=== PATIENT | female | born 1965 | race Caucasian/White ===

== ENCOUNTER 2022-12-04 07:36 | Day surgery (SDC) | payer OTHER ==
[2022-12-04] VITALS (9 sets, daily range): BP systolic 90–110; BP diastolic 57–75
[~2022-12-04] VITALS: Ht 157.5 cm; Wt 58.3 kg
[~2022-12-04 07:36] MED LIST: AMOX500 PO; BIRTH CONTROL; Flonase 0.05% N16 GM; HYDACE5; HYDACE5 PO; IBUP200; LEVO750 PO; NAPR220 PO; OTC NASAL SPRAY; OXYACE5T; PSEU30; RXAMOX500 PO; TRAM50 PO; Ventolin/Prove6.7 GM INH
[2022-12-04] MEDS ORDERED: Acetaminophen650 M1 PO (08:19)
[2022-12-04] MEDS ORDERED: OXYC5 PO (08:20)
[2022-12-04] MEDS ORDERED: FOLI1 PO (08:20)
--- NOTE | 2022-12-04 09:08 | NUR ---
Surgical site prepped with 2% Chlorhexidine cloth wipe. Patient confirms NPO status and agrees with scheduled surgery. Pre-Op teaching done. Pt verbalizes understanding. Patient States Post-Procedure ride home has been arranged.
--- NOTE | 2022-12-04 11:46 | NUR ---
Patient up to Ambulate independently. Gait steady. Discharge instructions reviewed with patient. Patient verbalizes understanding. Copy given to patient to take home.Catalino Paws warming gown applied. Patient States Post-Procedure ride home has been arranged. Discharged via wheelchair to private car for ride home.
--- NOTE | 2022-12-05 12:59 | NUR ---
12/05/22 1259 Kallie Arellano VERIFICATIONS: EDIT CHART.
== END 2022-12-04 11:48 | disposition home or self-care (01) ==
LOC: ORSCMMR 07:36 → ORD 09:00 → ORSCMMR 09:00
PROVIDERS: Surgery
PROC: 0JH63WZ Insertion of Totally Implantable Vascular Access Device into Chest Subcutaneous Tissue and Fascia, Percutaneous Approach (ICD-10-PCS; principal; 2022-12-04 09:00)
PROC: B543ZZA Ultrasonography of Right Jugular Veins, Guidance (ICD-10-PCS; principal; 2022-12-04 09:00)
PROC: 05HM33Z Insertion of Infusion Device into Right Internal Jugular Vein, Percutaneous Approach (ICD-10-PCS; principal; 2022-12-04 09:00)
DX: C34.12 Malignant neoplasm of upper lobe, left bronchus or lung (principal); J45.909 Unspecified asthma, uncomplicated; F17.210 Nicotine dependence, cigarettes, uncomplicated; K21.9 Gastro-esophageal reflux disease without esophagitis; Z79.899 Other long term (current) drug therapy
CPT/HCPCS: 77001; A9270; C1788; J0690; J1100; J1642; J2250; J2370; J2704; J3010; J7120

== ENCOUNTER 2023-04-05 19:03 | Inpatient (IN) | payer OTHER ==
[~2023-04-05] VITALS: Ht 154.9 cm; Wt 66.4 kg
[~2023-04-05 19:03] MED LIST changes: +Acetaminophen650 M1 PO; +FOLI1 PO; +ONDA4ODT; +OXYC5 PO; +PROMETHAZINE12.5 M2 PO
[2023-04-05 19:45] LABS: BASOPHILS ABSOLUTE AUTO 0.01 K/mm3 (0.00-0.23); BASOPHILS PERCENT AUTO 0 % (0-2); EOSINOPHILS ABSOLUTE AUTO 0.28 K/mm3 (0.00-0.68); EOSINOPHILS PERCENT AUTO 6 % (0-6); Hemoglobin 10.2 g/dL (11.5-16.0); IMMATURE GRAN ABSOLUTE AUTO 0.01 K/mm3 (0.00-0.10); IMMATURE GRAN PERCENT AUTO 0 % (0-1); LYMPHOCYTES ABSOLUTE AUTO 0.97 K/mm3 (0.84-5.20); LYMPHOCYTES PERCENT AUTO 19 % (21-46); MONOCYTES ABSOLUTE AUTO 0.38 K/mm3 (0.16-1.47); MONOCYTES PERCENT AUTO 7 % (4-13); Mean Corpuscular HGB 32.8 pg (26.0-34.0); Mean Corpuscular HGB Conc 35.2 g/dL (31.5-36.5); Mean Corpuscular Volume 93 fL (80-100); Mean Platelet Volume 8.6 fL (9.1-12.4); NEUTROPHILS ABSOLUTE AUTO 3.46 K/mm3 (1.96-9.15); NEUTROPHILS PERCENT AUTO 68 % (41-73); Platelet Count 236 K/mm3 (150-400); RDW Coefficient Variation 16.2 % (11.7-14.2); RDW Standard Deviation 54.5 fL (35.1-46.3); Red Blood Cell Count 3.11 M/mm3 (3.80-5.20); White Blood Cell Count 5.11 K/mm3 (4.00-11.30)
[2023-04-05 20:02] LABS: Albumin, Blood 3.5 g/dL (3.4-5.0); Bilirubin, Total 0.4 mg/dL (0.1-1.0); Bun/Creatinine Ratio 11.6 (12.0-20.0); Calcium, Blood 8.6 mg/dL (8.5-10.1); Creatinine, Blood 0.86 mg/dL (0.40-1.00); Globulin, Blood 3.5 g/dL (2.2-4.0); Potassium, Blood 3.7 mmol/L (3.5-5.5)
[2023-04-05 21:50] LABS: Source, Urine Clean Catch
[2023-04-05 21:53] LABS: Bilirubin, Urine Neg (Neg); Blood, Urine Neg (Neg); Glucose Qualitative, Urine Neg (Neg); Ketones, Urine Neg (Neg); Leukocyte Esterase, Urine 1+ (Neg); Nitrite, Urine Neg (Neg); Protein, Urine Neg (Neg); Urobilinogen, Urine NORM (Normal)
[2023-04-05 21:54] LABS: Appearance, Urine Clear (Clear); Color, Urine Yellow (P-Yellow)
[2023-04-05 22:11] LABS: Bacteria Few /hpf; Red Blood Cells, Urine Not Seen /hpf (0-2); Squamous Epithelial Cells Few /hpf (Few); White Blood Cells, Urine 0-2 /hpf (0-5)
[2023-04-05 22:12] LABS: Influenza A, PCR NEGATIVE (NEGATIVE); Influenza B, PCR NEGATIVE (NEGATIVE); Resp Syncytial Virus, PCR NEGATIVE (NEGATIVE); SARS-Cov-2 (COVID-19) PCR, MMC NEGATIVE (NEGATIVE)
[2023-04-06] VITALS (9 sets, daily range): BP systolic 79–100; BP diastolic 54–69
[2023-04-06 02:53] LABS: BASOPHILS ABSOLUTE AUTO 0.02 K/mm3 (0.00-0.23); BASOPHILS PERCENT AUTO 1 % (0-2); EOSINOPHILS ABSOLUTE AUTO 0.26 K/mm3 (0.00-0.68); EOSINOPHILS PERCENT AUTO 6 % (0-6); Hematocrit 28.6 % (33.0-51.0); Hemoglobin 10.1 g/dL (11.5-16.0); IMMATURE GRAN ABSOLUTE AUTO 0.01 K/mm3 (0.00-0.10); IMMATURE GRAN PERCENT AUTO 0 % (0-1); LYMPHOCYTES PERCENT AUTO 18 % (21-46); MONOCYTES ABSOLUTE AUTO 0.32 K/mm3 (0.16-1.47); MONOCYTES PERCENT AUTO 7 % (4-13); Mean Corpuscular HGB 33.2 pg (26.0-34.0); Mean Corpuscular HGB Conc 35.3 g/dL (31.5-36.5); Mean Corpuscular Volume 94 fL (80-100); Mean Platelet Volume 8.9 fL (9.1-12.4); NEUTROPHILS ABSOLUTE AUTO 2.96 K/mm3 (1.96-9.15); NEUTROPHILS PERCENT AUTO 68 % (41-73); Platelet Count 233 K/mm3 (150-400); RDW Standard Deviation 55.2 fL (35.1-46.3); Red Blood Cell Count 3.04 M/mm3 (3.80-5.20); White Blood Cell Count 4.37 K/mm3 (4.00-11.30)
[2023-04-06 03:08] LABS: International Normalized Ratio 1.08; Prothrombin Time Results 11.3 Sec (9.7-11.5)
[2023-04-06 03:14] LABS: Albumin, Blood 3.1 g/dL (3.4-5.0); Albumin/Globulin Ratio 0.9 (0.8-1.8); Bilirubin, Total 0.4 mg/dL (0.1-1.0); Bun/Creatinine Ratio 9.2 (12.0-20.0); Calcium, Blood 8.3 mg/dL (8.5-10.1); Creatinine, Blood 0.87 mg/dL (0.40-1.00); Globulin, Blood 3.5 g/dL (2.2-4.0); Potassium, Blood 3.5 mmol/L (3.5-5.5); Total Protein, Blood 6.6 g/dL (6.4-8.2)
--- NOTE | 2023-04-06 07:38 | NUR ---
SUMMARY PT ADMITTED TO PCU 6, PT IS A&O X4, 3 L VIA NC, SPO2 >94%, RESP UNLABORED. PT DENIES PAIN, ORIENTED TO ROOM, NS INFUSING PER EMAR. REPORT GIVEN TO DAY RN, PT IS RESTING QUIETLY, CALL LIGHT IN REACH
--- NOTE | 2023-04-06 08:58 | NUR ---
AM NOTE PT IS ALERT AND ORIENTED X 4, SHE APPEARED TO BE SLEEPING WHEN THIS RN ENTERED ROOM AND STATED THAT SHE IS FEELING RATHER TIRED. SHE REPORTED FEELING DIZZY WHEN SITTING UP, SHE REPORTED CHEST PAIN WHEN COUGHING. SBP NOTED TO BE 88 W/ MAP OF 67, HR STABLE. CALL LIGHT W/IN REACH.
[2023-04-06] MEDS ORDERED: EUTHYROX50 MCG PO (17:00)
--- NOTE | 2023-04-06 17:52 | NUR ---
SHIFT SUMMARY PT IS ALERT AND ORIENTED X 4, SHE ABLE TO MAKE HER NEEDS KNOWN AND HAS BEEN SOMNOLENT DURING SHIFT. BP NOTED TO BE SOFT W/ SBP 80-90'S, MAP HAS MAINTAINED 60'S-70'S. PT REPORTED FEELING LIGHTHEADED/DIZZY WHEN SITTING UP, SHE HAS SAT AT EDGE OF BED FOR DINNER. HR STABLE, SPO2 MAINTAINED >95% AT BASELINE O2 OF 3L VIA NC. PT REPORTED NAUSEA DURING SHIFT, PLEASE SEE EMAR FOR NAUSEA MANAGEMENT. PT HAS ALSO REPORTED FEELING SOB UPON EXERTION WELL CHEST PAIN 3/10 WHEN SHE COUGHS. IV IS SALINE LOCKED, 1L OF NS INFUSIION W/ 1 BAG ORDER WAS COMPLETE DURING SHIFT. PHYSICAL THERAPY WORKED W/ PT AND REPORTED PT DESATING TO 83% UPON AMBULATING IN ROOM. PT CURRENTLY HAS A VISITOR, CALL LIGHT IS W/IN REACH.
[2023-04-07] VITALS (17 sets, daily range): BP systolic 65–92; BP diastolic 38–66
[2023-04-07 03:45] LABS: Hematocrit 30.3 % (33.0-51.0); Hemoglobin 10.3 g/dL (11.5-16.0); Mean Corpuscular HGB 32.9 pg (26.0-34.0); Mean Corpuscular Volume 97 fL (80-100); Mean Platelet Volume 8.7 fL (9.1-12.4); Platelet Count 199 K/mm3 (150-400); RDW Coefficient Variation 16.2 % (11.7-14.2); RDW Standard Deviation 56.9 fL (35.1-46.3); Red Blood Cell Count 3.13 M/mm3 (3.80-5.20); White Blood Cell Count 6.08 K/mm3 (4.00-11.30)
[2023-04-07 04:04] LABS: Albumin, Blood 2.9 g/dL (3.4-5.0); Albumin/Globulin Ratio 0.8 (0.8-1.8); Bilirubin, Total 0.2 mg/dL (0.1-1.0); Bun/Creatinine Ratio 9.6 (12.0-20.0); Calcium, Blood 7.7 mg/dL (8.5-10.1); Creatinine, Blood 0.73 mg/dL (0.40-1.00); Globulin, Blood 3.5 g/dL (2.2-4.0); Potassium, Blood 3.5 mmol/L (3.5-5.5); Total Protein, Blood 6.4 g/dL (6.4-8.2)
--- NOTE | 2023-04-07 06:37 | NUR ---
PCU ) 6 A/Ox4 AND COOPERATIVE WITH CARE. ANSWERS QUESTIONS APPROPRIATELY AND ABLE TO MAKE HER NEEDS KNOWN. VERY SLEEPY T/O THE SHIFT, BUT IS EASILY AROUSABLE TO BOTH VERBAL AND TACTILE STIMULI. CARDIAC, CONTINUES TO HAVE BLOOD PRESSURES WITH SBP RANGING 70-90 S WITH MAP RANGING 60-70's T/O THE SHIFT. DR. MARROQUIN MADE AWARE WITH ORDERS TO INFUSE 1L NS OVER THE COURSE OF AN HOUR. BOLUS GIVEN ORDERED PER EMAR. SBP RESPONDED BY RANGING 80-90's WITH MAP REMAINING >65. REMAINS IN SR-ST 80-110's WITH HR INCREASING WITH AMBULATION. DENIES DIZZINESS WHILE AT REST AND ALSO REPORTS IMPROVEMENT TO DIZZINESS WITH MOVEMENT AFTER FLUIDS WERE GIVEN. PT ALSO ENCOURAGED TO INCREASE PO FLUID INTAKE. RESPIRATORY, MAINTAINS SPO2 >90% ON 4-6L VIA NC. DESATS VERY QUICKLY INTO MID 80 S WITH THE SLIGHTEST EXERTION. SATURATION LEVELS ALSO TAKE SOME TIME TO RECOVER WHEN AT REST. GI/, ABLE TO AMBULATE TO [facility] WITH SOME DIZZINESS REPORTED VOIDING IRVING COLORED URINE. NO BM FOR THIS SHIFT. ASSESSED PT FOR RISKS OF ANY IGNITION SOURCES WELL BEHAVIORS FOR INCREASED RISKS OF FIRE DANGER. PT EDUCATED ON COMMON SOURCES OF IGNITION WELL NEED TO KEEP A SAFE ENVIRONMENT. PT VOICED UNDERSTANDING. NO NEW ORDERS AT THIS TIME, WILL REPORT TO ONCBHAVANI BERRY OF THIS NOTE
--- NOTE | 2023-04-07 08:32 | NUR ---
PT A&OX4, ABLE TO MAKE NEEDS KNOWN. PT STATED SHE IS VERY TIRED THIS MORNING AND WOULD LIKE TO SLEEP. PT UP TO COMMODE WITH PIVOT, 02 WENT DOWN INTO HIGH 80'S THEN CAME RIGHT BACK UP INTO 90'S. PT REFUSED BREAKFAST, SAVING IT FOR LATER IN CASE SHE CHANGES HER MIND. PT ON 6L NC, O2 SATURATION ABOVE 92%, PT STATED MILD SOB AT REST BUMPED UP NC FROM 4 TO 6L. PT DENIES CHEST PAIN/PRESSURE, HR LOW 100'S, BP SOFT. PT DENIES PAIN AT THIS TIME. PT TEMP 100.0, REMOVED BLANKETS FROM PT, CALLED FACILITIES TO HAVE HEAT TURNED DOWN IN ROOM. PT RESTING IN BED, CALL LIGHT WITHIN REACH.
--- NOTE | 2023-04-07 16:30 | NUR ---
Spiritual care visit conducted. Patient is lying in bed and alert. Mother, Dorothy, is bedside. Patient explains about her poor prognosis and that she is having trouble wrapping her mind around it. She shares personal struggles, and some of the concerns moving forward. Nausea and weakness have seemed to be very challenging for her. They talk about the many churches that are praying for her. Dorothy invites me to pray, which I gladly supply. Patient is moved by it and voices appreciation for it. They both showed signs of being comforted. I will continue to remain available to patient and family.
--- NOTE | 2023-04-07 17:23 | NUR ---
SHIFT SUMMARY PT A&OX4, ABLE TO MAKE NEEDS KNOWN. PT IN HOME BLACK SHIRT & BLACK SWEATPANTS, OFFERED PT HOSPITAL GOWN & PANTS AT BEGINNING AND END OF SHIFT, PT REFUSED. PT HR LOW 100'S, PT DENIES CHEST PAIN/PRESSURE. PT ON 6L NC O2 SAT ABOVE 93%, DROPS TO MID/HIGH 80'S WITH EXERTION, PT STATES DIZZINESS/SOB WITH EXERTION. BP TRENDING UP. PT ON 125ML/HR NS PER ORDERS. PT HAS HAD LOW GRADE FEVER TODAY & 7/10 ALL OVER PAIN, PT GIVEN TYLENOL PER EMAR. PT STATED SHE HAS CHRONIC PAIN FROM ARTHRITIS. PT HAS BEEN RESTING THE MAJORITY OF THE DAY, SHE HAD A VISITOR EARLIER IN THE DAY. PT RESTING IN BED, TV ON, CALL LIGHT WITHIN REACH.
[2023-04-08 03:01] VITALS: BP 120/64
--- NOTE | 2023-04-08 06:43 | NUR ---
SHIFT SUMMARY A/Ox4 AND COOPERATIVE WITH CARE. ANSWERS QUESTIONS APPROPRIATELY AND ABLE TO MAKE HER NEEDS KNOWN. VERY SLEEPY T/O THE SHIFT, BUT IS EASILY AROUSABLE TO BOTH VERBAL AND TACTILE STIMULI. CARDIAC, BLOOD PRESSURES HAVE IMPROVED THIS SHIFT WITH SBP RANGING 80-110's WITH MAP REMAINING >65. REMAINS IN SR-ST 90-110 S WITH HR INCREASING WITH AMBULATION. DENIES DIZZINESS WHILE AT REST AND ALSO REPORTS IMPROVEMENT TO DIZZINESS SINCE LAST NIGHT. THIS RN CONTINUED TO ENCOURAGE PT TO INCREASE PO FLUID INTAKE. RESPIRATORY, MAINTAINS SPO2 >90% ON 5-7L VIA NC. DESATS VERY QUICKLY INTO MID 80's WITH THE SLIGHTEST EXERTION. SATURATION LEVELS CONTINUE TO TAKE QUITE SOME TIME TO RECOVER WHEN AT REST. GI/, ABLE TO AMBULATE TO BSC WITH SOME DIZZINESS REPORTED VOIDING MORE YELLOW COLORED URINE THIS SHIFT. NO BM FOR THIS SHIFT. ASSESSED PT FOR RISKS OF ANY IGNITION SOURCES WELL BEHAVIORS FOR INCREASED RISKS OF FIRE DANGER. PT EDUCATED ON COMMON SOURCES OF IGNITION WELL NEED TO KEEP A SAFE ENVIRONMENT. PT VOICED UNDERSTANDING. NO NEW ORDERS AT THIS TIME, WILL REPORT TO ONCOMING RN. BERRY OF THIS NOTE.
[2023-04-08 07:18] VITALS: BP 89/60
--- NOTE | 2023-04-08 10:56 | NUR ---
Spoke with Pt's Primary RN Beverly and discussed case. Brief supportive visit this AM. Pt sitting on edge of bed attempting to put her NC back on. Oxygen saturations down to the 70's. Offered assistance with placing NC back on. After several minutes O2 climbs back to normal range. Pt appears lethargic and weak. Pt's daughter at bedside. Pt reports living at home by her self. She reports having more difficulty with her ADLs including ambulation, bathing, and dressing. She reports increased fatigued and requires rest periods at home when ambulating from point A to point B at home. Brief gentle education on disease process and the importance of planning for the future. Daughter reports she has offered Pt to move down to [place] to live with her. Pt states not wanting to be a burden on family and is does not want to consider living with family at this point. Continued supportive visit. Pt agreeable for continued PC visits. Palliative Care will remain available
[2023-04-08 11:45] VITALS: BP 109/66
--- NOTE | 2023-04-08 11:46 | NUR ---
PT SITTING ON SIDE OF BED WITH VISITOR IN ROOM. CALL LIGHT WITHIN REACH.
--- NOTE | 2023-04-08 13:11 | NUR ---
Spiritual care visit conducted. Patient is lying in bed and alert. Patient's dtr La, is present. Patient talks about accepting her new prognosis and that she is now focusing on how to get out of the hospital into the best situation. We discuss the challenges of going home to live alone versus the option of moving in with La and her family. La describes the positives and potential challenges but does so while trying to address her mom's biggest fear of being a burden to her and her family. I share about the importance of a safe plan for her, the structure in [facility] at [facility] to help faciltate this kinds of transitions and the importance of beig near family during a time like this. I also provide prayer, therapeutic listening and gentle counseling psychologist. Patient does well to take in the care and concern and voices much appreciation for it. I will continue to remain available to patient and family.
[2023-04-08 15:04] VITALS: BP 108/66
--- NOTE | 2023-04-08 17:29 | NUR ---
SHIFT SUMMARY PT A&OX4, ANSWERS QUESTIONS APPROPRIATELY AND CAN MAKE NEEDS KNOWN. PT'S 02 SAT ABOVE 92% ON 7L NC, SOB WITH EXERTION. HR 100'S SR, PT DENIES CHEST PAIN PRESSURE. MAINTENANCE FLUID REDUCED FROM 125ML/HR TO 75ML/HR. BP STABLE. PT VISITED WITH A COUPLE DIFFERENT FAMILY MEMBERS TODAY. PT MORE ACTIVE TODAY THAN YESTERDAY. PT WATCHING TV LAYING DOWN, CALL LIGHT WITHIN REACH.
[2023-04-08 19:55] VITALS: BP 97/70
[2023-04-08 23:26] VITALS: BP 87/60
[2023-04-09] VITALS (7 sets, daily range): BP systolic 96–116; BP diastolic 6–72
--- NOTE | 2023-04-09 06:23 | NUR ---
SHIFT SUMMARY A/Ox2-3 AND COOPERATIVE WITH CARE. MORE CONFUSED THIS AM FOR SHE DIDN'T KNOW WHY SHE WAS IN THE HOSPITAL OR THE MONTH. CARDIAC, REMAINS IN SR-ST 90-100's WITH NO C/O CP OR PRESSURE T/O THE NIGHT. BLOOD PRESSURES HAVE CONTINUED TO IMPROVE SBP RANGING 80-110 S WITH MAP REMAINING >65. DENIES DIZZINESS WHILE AT REST, BUT CONTINUES TO REPORT SOME DIZZINESS WITH AMBULATION. RESPIRATORY, MAINTAINS SPO2 >90% ON 7-9L VIA HiFLOW NC. DESATS VERY QUICKLY INTO MID 80's WITH THE SLIGHTEST EXERTION. SATURATION LEVELS CONTINUE TO TAKE QUITE SOME TIME TO RECOVER WHEN AT REST. LS REMAIN VERY COARSE. GI/, ABLE TO AMBULATE TO BSC WITH SOME DIZZINESS REPORTED VOIDING YELLOW COLORED URINE THIS SHIFT. ASSESSED PT FOR RISKS OF ANY IGNITION SOURCES WELL BEHAVIORS FOR INCREASED RISKS OF FIRE DANGER. PT EDUCATED ON COMMON SOURCES OF IGNITION WELL NEED TO KEEP A SAFE ENVIRONMENT. PT VOICED UNDERSTANDING. NO NEW ORDERS AT THIS TIME, WILL REPORT TO ONCOMING RN. BERRY OF THIS NOTE.
[2023-04-09 06:49] LABS: Hematocrit 26.9 % (33.0-51.0); Hemoglobin 9.1 g/dL (11.5-16.0); Mean Corpuscular HGB 32.9 pg (26.0-34.0); Mean Corpuscular HGB Conc 33.8 g/dL (31.5-36.5); Mean Corpuscular Volume 97 fL (80-100); Platelet Count 197 K/mm3 (150-400); RDW Coefficient Variation 15.5 % (11.7-14.2); RDW Standard Deviation 54.3 fL (35.1-46.3); Red Blood Cell Count 2.77 M/mm3 (3.80-5.20); White Blood Cell Count 5.15 K/mm3 (4.00-11.30)
[2023-04-09 07:08] LABS: Bun/Creatinine Ratio 9.6 (12.0-20.0); Calcium, Blood 8.3 mg/dL (8.5-10.1); Creatinine, Blood 0.52 mg/dL (0.40-1.00); Potassium, Blood 3.2 mmol/L (3.5-5.5)
--- NOTE | 2023-04-09 07:22 | NUR ---
PT SLEEPING IN BED. O2 SATURATION 100% ON 7L HIGH FLOW HUMIDIFIED NC. HR 92, BP STABLE. CALL LIGHT WITHIN REACH.
--- NOTE | 2023-04-09 08:48 | NUR ---
PT DRANK HER ENTIRE ENSURE THIS MORNING. M
--- NOTE | 2023-04-09 10:27 | NUR ---
PT HAS BEEN ACTIVE THIS MORNING. LAYING DOWN TO SITTING UP, AND LAYING DOWN TO BEDSIDE COMMODE. BED ALARM SET. PT LUNG SOUNDS MORE COARSE THAN THEY WERE THIS MORNING. SPOKE WITH MD. HE STATED TO D/C IV FLUIDS AND GIVE LASIX, AWAITING ORDERS IN EMAR.
--- NOTE | 2023-04-09 11:18 | NUR ---
Case Conference Note Spoke with Primary RN Beverly and discussed case. Pt remains on 7 L O2 and appears to be doin ok. This RN will F/U when family arrives. Spoke with Dr Olmedo and discussed case. Plan: Continued supportive visits for now and will revisit goals of care if needed.
--- NOTE | 2023-04-09 16:20 | NUR ---
Daughter at bedside. Continuing to help patient stand up out of bed at bedside.
--- NOTE | 2023-04-09 17:27 | NUR ---
PT SUMMARY A&OX4 FOR THE MAJORITY OF THE TIME, THERE HAVE BEEN A FEW TIMES WERE PT HAS MADE A STATEMENT THAT SOUNDS IF SHE IS CONFUSED, THEN I WOULD ASK HER WHAT HER NAME IS AND HER DATE OF , WHERE SHE IS AND WHY, WHAT TOWN IT IS, AND SHE ASWERS APPROPRIATELY. LUNG SOUNDS ARE STILL COARSE, HOWEVER SHE SOUNDS BETTER THAN SHE DID EARLIER, SEE PREVIOS NOTES. PT IS UP TO 11.5L VIA HIGH FLOW NC, O2 SATURATION ABOVE 92% WHEN AT REST, SOB WITH EXERTION AND 02 SATURATION DROPS INTO MID/HIGH 80'S BEFORE RECOVERING ABOVE 90%. HR 90'S-100S, PT DENIES CHEST PAIN/PRESSURE. PT HAS BEEN MORE ACTIVE TODAY AND HAS ATE AND DRANK MORE. PT'S SISTER HAS BEEN HERE SINCE THE AFTERNOON VISITING WITH PT, OTHER VISITORS HAVE COME WELL. PT HAD 250 EMESIS OP AT 1450, WAS NOTIFIED. PT HAD HE[facility] TONIGHT, MEDICATED PER EMAR. PT STILL VISITING WITH SISTER, CALL LIGHT WITHIN REACH.
[2023-04-09 20:47] LABS: Base Excess Venous 14.9 mmol/L; Bicarbonate Venous 35.4 mmol/L (24.0-30.0); PCO2 Venous 80.7 mmHg (38-42); pH Blood Venous 7.32 (7.34-7.37)
[2023-04-10] VITALS (66 sets, daily range): BP systolic 78–110; BP diastolic 50–99
--- NOTE | 2023-04-10 01:37 | NUR ---
TRANSFER NOTE: PT ALERT AND ORIENTED X3 AT THE BEGINNING OF THE SHIFT, VITALS HRR SR 90-100'S, SBP 90-100'S, SATS ABOVE 90% ON 12L OF 02, AFEBRILE. PT STARTED GETTING AGITATED, CONFUSED AND HALLUCINATING SETTING THE BED ALARM ON MULTIPLE TIMES ALSO PT DESATTING TO LOW 70% AND 50% WHEN PT PULLS O2 OFF PT WAS NOT REDIRECTABLE, LUNGS COARSE AND WHEEZY ALL THROUGH OUT CALLED PROVIDER FOR BREATHING TX AND VBG AND CO2 WAS AT 80.7 PT STARTED COUGHING OUT MUCUS USES SUCTION AT THE BEDSIDE WITH SOME ASSISTANCE, DISCUSSED WITH THE AIR MOVING TECHNICIAN THE PT'S NEED FOR A SITTER APPARENTLY NO ONE WAS AVAILABLE TO SIT, CALLED RT PT KEEPS DESATTING, PT WAS THEN PLACED ON AIRVO STARTED AT 45L ON 45% FIO2 PT WAS STILL DESATTING ON THE LOW 70'S NON REBREATHER WAS USED TO RECOVER THEN SETTINGS INCREASED TO 55L 65%, DAUGHTER WAS CALLED BY AIR MOVING TECHNICIAN WAS GIVEN UPDATE REGARDING PT'S STATUS. IM ZYPREXA 5MG WAS GIVEN FOR AGITATION DOESNT SEEM TO WORK AT ALL, PAIN MEDS WAS GIVEN FOR BACK PAIN WELL NONE HAS HELPED. CALLED PROVIDER AGAIN ORDER TO TRANSFER PT TO ICU FOR PRECEDEX GTT AND BIPAPA WITH REPEAT VBG AFTER 2 HRS OF TX. PT WAS GETTING TRANSFERRED DAUGHTER ARRIVED, UPDATE WAS PROVIDED. PT TRANSFERRED TO ICU 12 ALL BELONGINGS SENT, REPORT GIVEN TO ALEC ROMO.
--- NOTE | 2023-04-10 02:52 | NUR ---
ASSUMED CARE PT WAS TRANSFERED FROM PCU AND BROUGHT TO ICU AT 0110. PT VERY CONFUSED UPON ARRIVAL TO ROOM AND NOT REDIRECTABLE. PT KEPT ATTEMPTING TO GET OUT OF BED. PT ON HI-FLOW NC @ 55 LMP, FiO2 @ 70% UPON ARRIVAL TO ROOM. 02 SATS > 90% BUT OCCASIONALLY DROPPING WHEN PT WOULD ATTEMPT TO GET OUT OF BED. PT'S LUNG CHANDRA COARSE, WHEEZY, DIM T/O. PT HAS WEAK, SEMI-PRODUCTIVE COUGH. CARDIAC MONITORING REFLECTED NSR, HR 90s. BP HYPOTENSIVE, SBP 80s-100s. PER REPORT FROM PREVIOUS NURSE, THIS HAS BEEN PT'S BASELINE. PIV IN LEFT AC SL. PT'S DAUGHTER AT BEDSIDE. PT AFEBRILE.
--- NOTE | 2023-04-10 03:04 | NUR ---
PT STATUS SINCE TRANSFER ONCE PT WAS STABLE IN ROOM, PRECEDEX WAS STARTED. CURRENTLY INFUSING @ 0.2 MCG/KG/HR WITH NS TKO. PT NOW REDIRECTABLE AND NO LONGER TRYING TO GET OUT OF BED. BIPAP WAS THEN PLACED BY RT. CURRENT SETTINGS 18/10/65%. PT TOLERATING WELL, O2 SATS > 95% AND PT IS NOT ATTEMPTING TO TAKE MASK OFF. ORAL CARE WAS PERFORMED PRIOR TO BIPAP PLACEMENT, PT'S TONGUE AND LIPS APPEARED STAINED A RED/ORANGE COLOR. COLOR DID NOT RESEMBLE BLOOD, PT STATES IT WAS FROM JELL-O. THERE WAS NO ACTIVE BLEEDING NOTED DURING ORAL CARE. PT'S EYES APPEARED SWOLLEN. DAUGHTER STATED THIS IS NOT PT'S BASELINE BUT DID NOT KNOW WHEN IT FIRST APPEARED. MEDIPORT ACCESSED AT RIGHT CHEST WALL. PT TOLERATED WELL W/OUT COMPLAINTS. POSITIVE BLOOD RETURN NOTED. PRECEDEX WITH NS TKO CURRENTLY INFUSING THROUGH MEDIPORT. PT'S BP REMAINS HYPOTENSIVE, SBP 80s-90s. DAUGHTER CONTINUES TO BE AT BEDSIDE.
[2023-04-10 04:06] LABS: Base Excess Venous 14.1 mmol/L; Bicarbonate Venous 35.9 mmol/L (24.0-30.0); PCO2 Venous 70.5 mmHg (38-42); pH Blood Venous 7.36 (7.34-7.37)
[2023-04-10 04:21] LABS: Hematocrit 24.8 % (33.0-51.0); Hemoglobin 8.3 g/dL (11.5-16.0); Mean Corpuscular HGB 32.3 pg (26.0-34.0); Mean Corpuscular HGB Conc 33.5 g/dL (31.5-36.5); Mean Corpuscular Volume 97 fL (80-100); Platelet Count 220 K/mm3 (150-400); RDW Coefficient Variation 15.2 % (11.7-14.2); RDW Standard Deviation 52.7 fL (35.1-46.3); Red Blood Cell Count 2.57 M/mm3 (3.80-5.20); White Blood Cell Count 3.57 K/mm3 (4.00-11.30)
[2023-04-10 04:52] LABS: Bun/Creatinine Ratio 10.7 (12.0-20.0); Calcium, Blood 8.7 mg/dL (8.5-10.1); Creatinine, Blood 0.56 mg/dL (0.40-1.00); Potassium, Blood 3.4 mmol/L (3.5-5.5)
--- NOTE | 2023-04-10 06:02 | NUR ---
SHIFT SUMMARY PT REMAINS MODERATELY CONFUSED AND ON BIPAP. PT IS REDIRECTABLE AND CAN FOLLOW COMMANDS. PT WAS ABLE TO VERBALIZE HER NEEDS WHEN ASKED. WHEN PT WAS WOKEN UP TO REPOSITION, PT WAS DISORIENTED AND BEGAN REACHING FOR LINES AND CORDS AROUND HER. PT REMAINS ON BIPAP, 18/10/65%. TOLERATING BIPAP WELL, O2 SATS > 95%. CARDIAC MONITORING REFLECTS NSR, HR 90s. SBP REMAINS HYPOTENSIVE, 80s-90s. MAP IS MAINTAINING >65. PRECEDEX GTT @ 0.2 MCG/KG/HR WITH NS TKO THROUGH MEDIPORT. PT'S DAUGHTER AT BEDSIDE, ASSISTS WITH REORIENTING PT WHEN SHE WAKES UP. LEENA OVALLES.
[2023-04-10 12:27] LABS: Base Excess Venous 14.4 mmol/L; Bicarbonate Venous 36.3 mmol/L (24.0-30.0); PCO2 Venous 62.6 mmHg (38-42); pH Blood Venous 7.41 (7.34-7.37)
--- NOTE | 2023-04-10 13:36 | NUR ---
Pt resting in bed with her eyes closed and wearing BIPAP. Family member laying down at bedside with eyes closed. Pt and family not disturbed at this time. Pt appears comfortable with no S/S of distress at this time. Reviewed chart.
--- NOTE | 2023-04-10 17:54 | NUR ---
SUMMARY PT RESTING IN BED. ON A BREAK FROM BIPAP WITH 6L NC. SPO2 88-94%. STOPPED PRECEDEX AT 1400 TODAY. PT ABLE TO WAKE UP ORIENTED AND COOPERATIVE. PT HAS NOT VOIDED, BLADDER SCAN THIS AFTERNOON WAS 345ML. TRIED TO GET PT TO USE BEDPAN BUT SHE DOES NOT HAVE THE URGE TO GO. PER DR. ESPITIA HE DOES NOT WANT TO STRAIGHT CATH UNTIL 500ML. NEXT BLADDER SCAN WILL BE AT 2000 PER POLICY. HOPING PT WILL BE ABLE TO AMBULATE TO COMMODE AFTER SEDATION HAS WORN OFF. STARTED ON IVF DUE TO POOR INTAKE TODAY WITH BEING ON BIPAP MOST OF THE DAY. DRINKING WATER NOW THAT SHE IS OFF BIPAP WITHOUT DIFFICULTY. FAMILY SUPPPORTIVE AT BEDSIDE ALL DAY.
--- NOTE | 2023-04-10 21:33 | NUR ---
ASSUMED CARE CARE WAS ASSUMED OF PT AT 1900, REPORT GIVEN BY LEWIS ROMO. PT A/O X4, DAUGHTER AT BEDSIDE. PT ABLE TO PARTICIPATE IN CONVERSATION AND MAKE NEEDS KNOWN. AT 1900, PT WAS ON 7 L N/C, TOLERATING WELL. O2 SATS >90 %. CARDIAC MONITORING REFLECTED NSR, HR 70s-80s. SBP 100s. NS INFUSING @ 100 ML/HR THROUGH MEDIPORT AT RIGHT CHEST WALL. PIV SL. DAUGHTER REMAINS AT BEDSIDE. PT CURRENTLY ON HEATED HUMIDIFIED HI-FLOW N/C, 50 LPM, FiO2 60%. PT TOLERATING WELL, O2 SAT 90%.
[2023-04-11] VITALS (21 sets, daily range): BP systolic 97–135; BP diastolic 68–89
--- NOTE | 2023-04-11 02:44 | NUR ---
PT SPO2 BEGAN ALARMING FOR PT DESATTING TO LOW 80s. WENT INTO ROOM, PT COMPLAINING OF DIFFICULTY BREATHING. RAISED PT'S HOB AND AUSCULTATED LUNG CHANDRA. WHEEZING NOTED T/O WITH SLIGHT CRACKLES IN BASES. NOTIFIED RT. BREATHING TX ADMIN. DR. HANNA NOTIFIED. NS @ 100 TURNED OFF AND SWITCHED TO TKO. PT O2 SATS NOW > 90%. HEATED HI-FLOW N/C SETTINGS REMAIN 50 LPM WITH 80% FiO2.
[2023-04-11 04:32] LABS: Albumin, Blood 2.5 g/dL (3.4-5.0); Anion Gap 2 mmol/L (6-16); Blood Urea Nitrogen 7 mg/dL (8-24); Bun/Creatinine Ratio 12.2 (12.0-20.0); CO2, Blood 38 mmol/L (21-32); Chloride, Blood 94 mmol/L (98-108); Creatinine, Blood 0.57 mg/dL (0.40-1.00); Glomerular Filtration Rate 106 (60-); Glucose, Blood 102 mg/dL (70-99); Phosphorus, Blood 2.8 mg/dL (2.5-4.9); Potassium, Blood 3.2 mmol/L (3.5-5.5); Sodium, Blood 134 mmol/L (136-145)
--- NOTE | 2023-04-11 05:51 | NUR ---
SHIFT SUMMARY PT REMAINS A/O X4. PT IS ABLE TO MAKE NEEDS KNOWN AND PARTICIPATE IN CONVERSATION. PT'S O2 REQUIREMENTS STEADILY INCREASED AT BEGINNING OF SHIFT. PT CURRENTLY ON HEATED HI-FLOW N/C 50 LPM 80% FiO2. PT HAS TOLERATED WELL AND MAINTAINED O2 SATS >90%. WHEN PT COUGHS OR REPOSITIONS O2 SATS WILL DECREASE TO 80s, BUT WILL RECOVER SLOWLY. CARDIAC MONITORING REFLECTS NSR, HR 90s. SBP 90s-100s. PT WAS ABLE TO USE BSC TWICE THIS SHIFT WITH 2 NURSE ASSIST, TOTAL OUTPUT OF 300 ML. BLADDER SCAN WAS PERFORMED AFTER FIRST VOID AND PT HAD POST-VOID RESIDUAL OF 216 ML. POTASSIUM CAME BACK LOW WITH MORNING LABS, REPLACED PER ORDER FROM DR. HANNA. DAUGHTER REMAINS AT BEDSIDE. WILL CONTINUE TO MONITOR UNTIL CARE IS TRANSITIONED TO DAY SHIFT.
--- NOTE | 2023-04-11 09:47 | NUR ---
Spiritual care visit conducted. I talk with patient's sister and dtr about goals of care. THey discuss a plan to bring pateint to [place] to dtr's house depending on how pt progresses but they admit to being very realistic at this point in terms of moving toward comfort care/hospice if things do not turn around in a couple of days. I provide prayer and therapeutic listening. Patietn falls asleep during the prayer but family voice their appreciation ad showed signs of being comforted. I will continue to remain available.
--- NOTE | 2023-04-11 10:11 | NUR ---
ASSUMED CARE REPORT FROM PENELOPE/BERNARD RN AT 0700. PT RESTING IN BED. FAMILY AT BEDSIDE. PT WAKES c VERBAL STIMULI. RETURNS TO SLEEP WHEN UNDISTURBED. A&OX 4. FOLLOWS COMMANDS. FLAT AFFECT. DENIES NEEDS OR COMPLAINTS. LUNGS COARSE IN RUL, DIM THROUGHOUT. AIRVO 50L/80%. O2 SATS LOW 90'S. DESATS c MINIMAL EXERTION. SR, RATE 90'S. BP STABLE. POOR APPETITE. ONE PERSON ASSIST TO BSC. TOLERATED WELL. MEDIPORT TO RIGHT CHEST ACCESSED, TKO INFUSING. WILL CONTINUE TO MONITOR.
--- NOTE | 2023-04-11 10:38 | NUR ---
"Spiritual Care | Nurse request Pt. is awake in bed and talking to family who welcome my visit. Family verbalizes that Liquor Tester Tim was in earlier in the day, but welcomed prayer. Prayed with Pt. and family all verbalized gratitude for the spiritual care visit."
--- NOTE | 2023-04-11 14:47 | NUR ---
Supportive visit this afternoon. Pt resting in bed and on AIRVO. Pt's daughter and sister at bedside. Reviewed plan of care and answered questions. Daughter La reports starting the medicaid process for Pt with [employer]. La reports Pt has agreed to temporarily live with La. Continued supportive visit. Spoke with Primary RN Monserrat and discussed case. Spoke with Dr Hernandez and discussed case. Plan is to see Pt a little later this afternoon and review plan of care/discuss findings on X-Ray. Palliative Care will F/U for supportive visit with Dr Hernandez.
--- NOTE | 2023-04-11 16:21 | NUR ---
Joint visit with Dr Hernandez. Pt's sister and mother at bedside. Dr Hernandez discusses and reveiews plan of care. Discusses recommendations. Pt and family agreeable with plan of care. Plan to start Pt on prednisone. Family expresses appreciation and reports no other concerns at this time. Palliative Care will remain available
--- NOTE | 2023-04-11 17:47 | NUR ---
SHIFT SUMMARY PT REMAINED ON AIRVO ENTIRE SHIFT. INCREASED REQUIREMENTS 55L-90%, O2 SATS HIGH 80'S. LUNGS COARSE RUL, DIM THROUGHOUT. SPEAKING IN SHORT SENTENCES. PT DESATS c MINIMAL EXERTION OR TURNS. SR, RATE 90'S. BP STABLE. DISCUSSED INCREASING O2 REQUIREMENTS c DR CHAUHAN AND FAMILY AT BEDSIDE. PT DECIDES TO BE FULL CODE RATHER THAN LIMITED, ORDER CHANGED. POOR APPETITE. FAMILY AT BEDSIDE. TAJ CHENG STARTED THIS SHIFT. WILL CONTINUE TO MONITOR UNTIL REPORT TO ONCOMING NURSE.
--- NOTE | 2023-04-11 19:15 | NUR ---
ASSUMPTION OF CARE: RECIEVED REPORT FROM DIEGO ROMO. PT ALERT AND ORIENTED TO TIME, PERSON, PLACE AND SITUATION. ABLE TO ANSWER QUESTIONS AND MAKE NEEDS KNOWN. PT ON BIPAP WITH SETTINGS 18/10/100%. PT STATES SHE FEELS THOUGH SHE CANNOT MOVE AIR. RT NOTIFIED BIPAP SETTINGS CHANGED TO 20/10/95%. LUNG SOUNDS COARSE, TIGHT AND DIMINISHED T/O. SPO2 >95%. CARDIAC MONITORING IN PLACE, SINUS RHYTHM WITH RATE 80'S. SBP 100'S. DENIES CHEST PAIN OR PRESSURE. PIV IN LAC, SALINE LOCKED AT THIS TIME. MEDIPORT TO RIGHT UPPER CHEST, INFUSING TKO. PT ABLE TO TRANSFER TO BEDSIDE COMMODE WITH NURSE ASSIST. VOIDING YELLOW URINE. NO BM YET THIS SHIFT. DAUGHTER AT THE BEDSIDE AND UPDATED TO PLAN OF CARE. CALL LIGHT IN REACH.
[2023-04-12] VITALS (23 sets, daily range): BP systolic 97–139; BP diastolic 59–97
[2023-04-12 03:38] LABS: PO2 Arterial 66.5 mmHg (80-100); pH Blood Arterial 7.46 (7.35-7.45)
[2023-04-12 03:54] LABS: Hematocrit 29.7 % (33.0-51.0); Hemoglobin 9.9 g/dL (11.5-16.0); Mean Corpuscular HGB 32.5 pg (26.0-34.0); Mean Corpuscular HGB Conc 33.3 g/dL (31.5-36.5); Mean Corpuscular Volume 97 fL (80-100); Mean Platelet Volume 8.6 fL (9.1-12.4); Platelet Count 316 K/mm3 (150-400); RDW Coefficient Variation 15.2 % (11.7-14.2); RDW Standard Deviation 53.4 fL (35.1-46.3); Red Blood Cell Count 3.05 M/mm3 (3.80-5.20); White Blood Cell Count 3.92 K/mm3 (4.00-11.30)
[2023-04-12 04:15] LABS: Bun/Creatinine Ratio 12.2 (12.0-20.0); Calcium, Blood 8.7 mg/dL (8.5-10.1); Creatinine, Blood 0.49 mg/dL (0.40-1.00); Magnesium, Blood 1.7 mg/dL (1.6-2.4); Potassium, Blood 4.1 mmol/L (3.5-5.5)
--- NOTE | 2023-04-12 06:02 | NUR ---
SHIFT SUMMARY: PT REMAINS ALERT AND ORIENTED TO PERSON, PLACE AND SITUATION. EPISODES OF CONFUSION AT TIMES. REMAINS ON BIPAP WITH SETTINGS 20/10/55%. SPO2 >90%. LUNGS REMAIN TIGHT, COARSE AND DIM T/O. PT HAS C/O FEELING LIKE SHE CAN'T BREATHE. RT NOTIFIED, BREATHING TREATMENT GIVEN WITH MILD RELIEF. FREQUENT ORAL CARE T/O THE SHIFT WITH MODERATE AMOUNTS OF SECRETIONS. CARDIAC MONITORING IN PLACE, SR T/O SHIFT HR 80'S-90'S. SBP 120'S. DENIES CHEST PAIN OR PRESSURE. ABLE TO TRANSFER TO THE COMMODE WITH ASSISTANCE, VOIDING YELLOW URINE. NO BM T/O THE SHIFT. PT HAS C/O FEELING GASSY, ORDER FOR SIMETHICONE RECEIVED FROM DR. HANNA. MEDIPORT REMAINS PATENT AND INFUSING TKO. LAC PIV REMAINS SALINE LOCKED. DAUGHTER AT BEDSIDE T/O THE SHIFT, UPDATED TO PLAN OF CARE.
--- NOTE | 2023-04-12 08:57 | NUR ---
ASSUMED CARE REPORT FROM TRISTAN/ISIDRO RN AT 0700. PT RESTING IN BED. FAMILY AT BEDSIDE. PT ON BIPAP AT SHIFT CHANGE, 20/10/55%, TV 350-400'S. CHANGED TO AIRVO 55L/60%. TOLERATING WELL. O2 SATS LOW 90'S. PT DESATS c EXERTION (BLOWING NOSE, COUGHING). SPEAKING IN FULL SENTENCES. CONFUSED TO PLACE BUT REORIENTS EASILY. KNOWS FAMILY. LUNGS DIM, COARSE RUL. NON PRODUCTIVE COUGH. SR, RATE 90-100'S. BP STABLE. ABD ROUND, SOFT, MILDLY TENDER. PT REPORTS FULLNESS AND BLOATING. TUMS GIVEN. ALSO C/O BACK PAIN, MEDICATED c [place]CO. POOR APPETITE, ENCOURAGED PO INTAKE. MEDIPORT TO RIGHT CHEST WALL. WILL CONTINUE TO MONITOR.
--- NOTE | 2023-04-12 17:18 | NUR ---
SHIFT SUMMARY PT REMAINED ON AIRVO 55L/60% THIS SHIFT. TOLERATED WELL. O2 SATS 88-92%. DESATS c REPOSITIONING OR COUGH BUT TOLERATED UP TO BSC WELL. STANDBY ASSIST FOR CORD MANAGEMENT. LUNGS COARSE RUL, DIM THROUGHOUT REST OF CHANDRA. PRODUCTIVE COUGH c YELLOW SPUTUM. ABLE TO CLEAR SECRETIONS. SR, RATE 90-100'S. BP STABLE. GENERALIZED EDEMA WORSENING THIS SHIFT. CONTINUES TO HAVE POOR APPETITE. TOLERATES ENSURES WELL. UP TO BSC THREE TIMES THIS SHIFT. CLEAR YELLOW URINE OUT, NO BM. MEDIPORT TO CHEST WALL c TKO INFUSING. FAMILY AT BEDSIDE.
--- NOTE | 2023-04-12 19:15 | NUR ---
ASSUMPTION OF CARE: RECEIVED REPORT FROM LUI ROMO. PT ALERT AND ORIENTED TO PERSON, PLACE AND SITUATION. HAS SOME PERIODS OF CONFUSION BUT IS EASILY REORIENTED. DAUGHTER AT THE BEDSIDE AT THIS TIME. PATIENT PLACED BACK ON BIPAP FROM AIRVO FOR SLEEP. BIPAP SETTINGS 18/10/60%. TOLERATING WELL. SPO2 >90%. DENIES SOB. PT IN ST WITH RATE 100'S. SBP 100'S HAS NO C/O CHEST PAIN OR PRESSURE. HAS C/O FEELING FULL AND GASSY. PT GIVEN TUMS PER REQUEST WITH RELIEF. ABLE TO TARNSFER TO THE COMMODE WITH ASSISTANCE FOR LINE MANAGEMENT. ABLE TO POSITION IN THE BED WITH MINIMAL ASSIST. GENERALIZED EDEMA T/O BODY. PORT TO RIGHT CHEST WALL, INFUSING TKO. LAC PIV SALINE LOCKED, FLUSHES DOES NOT DRAW. CALL LIGHT IN REACH.
[2023-04-13] VITALS (22 sets, daily range): BP systolic 97–132; BP diastolic 61–102
[2023-04-13 04:12] LABS: BASOPHILS ABSOLUTE AUTO 0.01 K/mm3 (0.00-0.23); BASOPHILS PERCENT AUTO 0 % (0-2); EOSINOPHILS PERCENT AUTO 0 % (0-6); Hemoglobin 8.8 g/dL (11.5-16.0); IMMATURE GRAN ABSOLUTE AUTO 0.06 K/mm3 (0.00-0.10); IMMATURE GRAN PERCENT AUTO 1 % (0-1); LYMPHOCYTES ABSOLUTE AUTO 0.72 K/mm3 (0.84-5.20); LYMPHOCYTES PERCENT AUTO 6 % (21-46); MONOCYTES ABSOLUTE AUTO 0.49 K/mm3 (0.16-1.47); MONOCYTES PERCENT AUTO 4 % (4-13); Mean Corpuscular HGB 32.8 pg (26.0-34.0); Mean Corpuscular HGB Conc 33.8 g/dL (31.5-36.5); Mean Corpuscular Volume 97 fL (80-100); Mean Platelet Volume 8.9 fL (9.1-12.4); NEUTROPHILS ABSOLUTE AUTO 11.29 K/mm3 (1.96-9.15); NEUTROPHILS PERCENT AUTO 90 % (41-73); Platelet Count 312 K/mm3 (150-400); RDW Coefficient Variation 15.2 % (11.7-14.2); RDW Standard Deviation 53.5 fL (35.1-46.3); Red Blood Cell Count 2.68 M/mm3 (3.80-5.20); White Blood Cell Count 12.57 K/mm3 (4.00-11.30)
[2023-04-13 04:35] LABS: Albumin, Blood 2.6 g/dL (3.4-5.0); Anion Gap 0 mmol/L (6-16); Blood Urea Nitrogen 9 mg/dL (8-24); Bun/Creatinine Ratio 13.9 (12.0-20.0); CO2, Blood 39 mmol/L (21-32); Calcium, Blood 9.2 mg/dL (8.5-10.1); Chloride, Blood 98 mmol/L (98-108); Creatinine, Blood 0.65 mg/dL (0.40-1.00); Glomerular Filtration Rate 103 (60-); Glucose, Blood 136 mg/dL (70-99); Phosphorus, Blood 1.8 mg/dL (2.5-4.9); Potassium, Blood 3.8 mmol/L (3.5-5.5); Sodium, Blood 137 mmol/L (136-145)
--- NOTE | 2023-04-13 05:35 | NUR ---
SHIFT SUMMARY: REMAINED ON BIPAP T/O THE NIGHT WITH BREAKS FOR ORAL CARE AND WATER. TOLERATING WELL. SETTINGS 18/10/60%. SPO2 >90% DENIES SOB. LUNG SOUNDS CLEAR IN UPPER LOBES AND DIM IN THE BASES. NON-PRODUCTIVE COUGH. REMAINS IN SR/ST WITH RATE 90'S-110'S. SBP 100'S. DENIES CHEST PAIN OR PRESSURE. MORE ALERT AND ORIENTED T/O THE SHIFT. ABLE TO ANSWER QUESTIONS AND MAKE NEEDS KNOWN. STILL HAS MINIMAL EPISODES OF CONFUSION BUT IS EASILY REORIENTED. ABLE TO TRANSFER TO THE COMMODE THIS EVENING WITH MINIMAL ASSIST AND VOIDED YELLOW URINE. NO BM T/O THE SHIFT. CONTINUES TO HAVE GENERALIZED EDEMA. MEDIPORT TO RIGHT CHEST WALL INFUSING TKO, LAC PIV SALINE LOCKED. DAUGHTER REMAINED AT BEDSIDE T/O THE NIGHT. CALL LIGHT IN REACH
--- NOTE | 2023-04-13 09:35 | NUR ---
ASSUMED CARE REPORT FROM TRISTAN ROMO AT 0700. PT RESTING IN BED. BIPAP ON AT SHIFT CHANGE, 20/10/60%, CHANGED TO AIRVO 50L/60%. TOLERATING WELL. SPEAKING IN FULL SENTENCES. LUNGS CLEAR RUL, DIM IN REST OF BASES. PRODUCTIVE COUGH c YELLOW SPUTUM. O2 SATS LOW 90'S. ST, RATE 90-110'S. GENERALIZED EDEMA, 1+ IN BLE AND BUE, FACIAL SWELLING. BP STABLE. ABD ROUND, SOFT, GENERALIZED TENDERNESS, BT X 4. PT C/O GAS. BM THIS AM. UP TO BSC FOR ELIMINATION. STANDBY ASSIST FOR CORD MANAGEMENT. MEDIPORT TO RIGHT CHEST WALL, DRESSING C/D/I. TKO INFUSING. WILL CONTINUE TO MONITOR.
--- NOTE | 2023-04-13 17:22 | NUR ---
SHIFT SUMMARY NO ACUTE CHANGES THIS SHIFT. PT REMAINED ON AIRVO 50L/55%. O2 SATS LOW-MID 90'S. LUNGS CLEAR RUL, DIM THROUGHOUT. PRODUCTIVE COUGH c YELLOW SPUTUM. TOLERATING TRANSFERS TO BSC WELL. WORKED c RT FOR IS, FV, AND CPT THIS SHIFT. SR/ST ON MONITOR, RATE 90-110'S. BP STABLE. BM THIS SHIFT. INCREASED APPETITE, ATE APPROX 25% OF MEALS AND DRANK ENSURE AT MEALTIMES. C/O HEARTBURN, PEPCID AND TUMS GIVEN. WILL CONTINUE TO MONITOR UNTIL REPORT TO ONCOMING NURSE.
--- NOTE | 2023-04-13 19:39 | NUR ---
ASSUMPTION OF CARE: RECEIVED REPORT FROM DIEGO ROMO. ALERT AND ORIENTED TO DATE, SELF, SITUATION AND PLACE. ABLE TO ANSWER QUESTIONS AND MAKE NEEDS KNOWN. PT ON AIRVO CURRENTLY WITH SETTINGS 50L/55%. SPO2 >90%. TOLERATING WELL. DENIES SOB. LUNG SOUNDS CLEAR IN UPPER LOBES AND DIM IN THE BASES. CARDIAC MONITORING IN PLACE, ST WITH RATE 110'S. SBP 100'S. NO C/O CHEST PAIN OR PRESSURE. PT STATES SHE HAS MILD BACK PAIN BUT DID NOT WANT MEDICATION AT THIS TIME. REPOSITIONING TO ALLEVIATE DISCOMFORT. ABLE TO GET UP TO THE BEDSIDE COMMODE WITH LINE MANAGEMENT, VOIDING YELLOW URINE. NO BM YET THIS SHIFT. ABLE TO BRUSH TEETH AND WASH FACE WITH SET-UP HELP ONLY. GENERALIZED EDEMA T/O UPPER AND LOWER EXTREMETIES AND FACE. CALL LIGHT WITHIN REACH. BED LOW AND LOCKED.
[2023-04-14] VITALS (19 sets, daily range): BP systolic 113–136; BP diastolic 78–95
[2023-04-14 04:04] LABS: BASOPHILS ABSOLUTE AUTO 0.01 K/mm3 (0.00-0.23); BASOPHILS PERCENT AUTO 0 % (0-2); EOSINOPHILS PERCENT AUTO 0 % (0-6); Hematocrit 23.8 % (33.0-51.0); Hemoglobin 7.9 g/dL (11.5-16.0); IMMATURE GRAN ABSOLUTE AUTO 0.12 K/mm3 (0.00-0.10); IMMATURE GRAN PERCENT AUTO 1 % (0-1); LYMPHOCYTES PERCENT AUTO 6 % (21-46); MONOCYTES ABSOLUTE AUTO 0.87 K/mm3 (0.16-1.47); MONOCYTES PERCENT AUTO 6 % (4-13); Mean Corpuscular HGB 32.2 pg (26.0-34.0); Mean Corpuscular HGB Conc 33.2 g/dL (31.5-36.5); Mean Corpuscular Volume 97 fL (80-100); NEUTROPHILS ABSOLUTE AUTO 12.23 K/mm3 (1.96-9.15); NEUTROPHILS PERCENT AUTO 87 % (41-73); Platelet Count 360 K/mm3 (150-400); RDW Coefficient Variation 15.8 % (11.7-14.2); RDW Standard Deviation 54.8 fL (35.1-46.3); Red Blood Cell Count 2.45 M/mm3 (3.80-5.20); White Blood Cell Count 14.13 K/mm3 (4.00-11.30)
[2023-04-14 04:20] LABS: Albumin, Blood 2.6 g/dL (3.4-5.0); Anion Gap 4 mmol/L (6-16); Blood Urea Nitrogen 13 mg/dL (8-24); Bun/Creatinine Ratio 14.5 (12.0-20.0); CO2, Blood 36 mmol/L (21-32); Calcium, Blood 8.7 mg/dL (8.5-10.1); Chloride, Blood 101 mmol/L (98-108); Glomerular Filtration Rate 75 (60-); Glucose, Blood 112 mg/dL (70-99); Potassium, Blood 3.9 mmol/L (3.5-5.5); Sodium, Blood 141 mmol/L (136-145)
--- NOTE | 2023-04-14 05:47 | NUR ---
SHIFT SUMMARY: REMAINS ALERT AND ORIENTED X3-4 T/O THE SHIFT. PT ABLE TO GET A FEW HOURS OF UNINTERRUPTED REST T/O THE NIGHT. BIPAP REMAINS IN PLACE WITH SETTINGS 16/10/55%. TOLERATING WELL WITH NO COMPLAINTS. SPO2 >90%. NO C/O SOB. LUNGS CLEAR IN UPPERS DIM IN LOWERS. NONPRODUCTIVE COUGH OCCASIONALLY. SR/ST WITH RATE 90'S-110'S. SBP 120'S. NO CHEST PAIN OR PRESSURE. ABLE TO TRANSFER TO [facility] WITH LINE MANAGEMENT. VOIDING MODERATE AMOUNTS OF YELLOW URINE. NO BM THIS SHIFT. GENERALIZED EDEMA T/O BODY. ABLE TO TOLERATE SMALL BREAKS FROM BIPAP FOR ORAL CARE, MEDS AND FLUIDS T/O THE NIGHT. NO EPISODES OF DESATURATION. MEDIPORT TO RIGHT CHEST WALL CONTINUES TO INFUSE TKO. LEFT AC PIV SALINE LOCKED. PT HAD C/O BACK PAIN, WAS MEDICATED PER MAR WITH RELIEF. CALL LIGHT IN REACH. ABLE TO MAKE NEEDS KNOWN.
--- NOTE | 2023-04-14 07:55 | NUR ---
ASSUMED CARE / DR THOMAS: REPORT RECEIVED FROM TRISTAN Martínez & ISIDRO Ricardo, Shelley. ASSUMED CARE OF THIS PT AT APPROX 0700. ON ASSESSMENT, THE PT IS AWAKE & SITTING UP IN THE CHAIR, ORIENTED TO ALL. SHE STS HAVING SOME "GAS PAINS" BUT IS IN NO OTHER DISCOMFORT AT THIS TIME. PT ON AIRVO W/ SETTINGS: 50 L/MIN & 55% FIO2 W/ O2 SATS > 95%. LS DIM IN LLL. PT STS BREATHING FEELS "ABOUT THE SAME," RESPIRATIONS UNLABORED AT THIS TIME. MONITOR SHOWS SR W/ HR 90s, BP STABLE. PT TOLERATING PO INTAKE WELL. VOIDS URINE W/O DIFFICULTY USING BSC. SBA FOR TXs. SKIN OVERALL INTACT, MEDIPORT TO RIGHT CHEST WALL IS ACCESSED W/ NS TKO INFUSING. DR THOMAS AT BEDSIDE THIS AM TO EVAL PT. HE HAS SPOKEN W/ CARDIOTHORACIC SURGERY AT [facility] & DETERMINED THAT THERE IS NO AVAILABLE SURGICAL OR STENTING OPTION FOR THIS PT's LUNG MASS. HE HAS ENCOURAGED THE PT TO CONSIDER HOSPICE AT THIS TIME. THIS RN WILL ENSURE THAT PALLIATIVE CARE HAS BEEN CONSULTED FOR THIS PT. WILL CONTINUE TO MONITOR & UPDATE NEEDED.
--- NOTE | 2023-04-14 08:15 | NUR ---
DR MERIDA: PROVIDER AT BEDSIDE THIS AM TO DISCUSS POC. AT DR THOMAS's REQUEST, THIS RN HAS UPDATED DR MERIDA REGARDING HIS CONTACT W/ CARDIOTHORACIC SURGEON AT [facility]. NO CHANGES AT THIS TIME.
--- NOTE | 2023-04-14 13:24 | NUR ---
Spiritual care visit conducted. Patient is lying in bed and alert and has her dtr La, bedside. Her voice and movements are much stronger today then my last visit. She takes a minute to engage in the conversation but once all the pieces came together she was all in. We discuss good plans moving forward, her struggles with not wanting to be a burden and the depth of love her family has for her. She talks about the difficulty she is having in accepting her prognosis. I provide therapeutic listening, prayer and gentle memorial counselor. The patient responded well and is moved to tears by the prayer. She voices great appreciation for the visit.
--- NOTE | 2023-04-14 17:42 | NUR ---
CARE OF PT ASSUMED AT 1600. PT SAT ON SIDE OF BED AND/OR CHAIR FOR MAJORITY OF SHIFT. SATS 98% ON AIRVO AT 50L/45%. PT TOLERATING SMALL AMT OF ACTIVITY, SUCH TRANSFERING TO COMMODE. PT NOW PCU STATUS.
[2023-04-15 04:00] VITALS: BP 123/82
[2023-04-15 04:38] LABS: BASOPHILS ABSOLUTE AUTO 0.01 K/mm3 (0.00-0.23); BASOPHILS PERCENT AUTO 0 % (0-2); EOSINOPHILS ABSOLUTE AUTO 0.06 K/mm3 (0.00-0.68); EOSINOPHILS PERCENT AUTO 1 % (0-6); Hematocrit 24.8 % (33.0-51.0); Hemoglobin 8.3 g/dL (11.5-16.0); IMMATURE GRAN ABSOLUTE AUTO 0.17 K/mm3 (0.00-0.10); IMMATURE GRAN PERCENT AUTO 2 % (0-1); LYMPHOCYTES ABSOLUTE AUTO 1.27 K/mm3 (0.84-5.20); LYMPHOCYTES PERCENT AUTO 13 % (21-46); MONOCYTES PERCENT AUTO 7 % (4-13); Mean Corpuscular HGB 33.1 pg (26.0-34.0); Mean Corpuscular HGB Conc 33.5 g/dL (31.5-36.5); Mean Corpuscular Volume 99 fL (80-100); NEUTROPHILS ABSOLUTE AUTO 7.47 K/mm3 (1.96-9.15); NEUTROPHILS PERCENT AUTO 77 % (41-73); Platelet Count 379 K/mm3 (150-400); RDW Coefficient Variation 15.8 % (11.7-14.2); RDW Standard Deviation 56.6 fL (35.1-46.3); Red Blood Cell Count 2.51 M/mm3 (3.80-5.20); White Blood Cell Count 9.68 K/mm3 (4.00-11.30)
[2023-04-15 05:58] LABS: Albumin, Blood 2.7 g/dL (3.4-5.0); Anion Gap 4 mmol/L (6-16); Blood Urea Nitrogen 15 mg/dL (8-24); Bun/Creatinine Ratio 15.2 (12.0-20.0); CO2, Blood 33 mmol/L (21-32); Calcium, Blood 8.6 mg/dL (8.5-10.1); Chloride, Blood 103 mmol/L (98-108); Creatinine, Blood 0.99 mg/dL (0.40-1.00); Glomerular Filtration Rate 67 (60-); Glucose, Blood 85 mg/dL (70-99); Phosphorus, Blood 3.1 mg/dL (2.5-4.9); Potassium, Blood 3.6 mmol/L (3.5-5.5); Sodium, Blood 140 mmol/L (136-145)
--- NOTE | 2023-04-15 06:10 | NUR ---
PATIENT AOX4. SR WITH STABLE BP. AIRVO 45L 45% WHEN AWAKE, BIPAP 16/10 45% WHILE SLEEPING. TOLERATING DIET. ABLE TO USE BSC. TKO INFUSING THROUGH PORT.
[2023-04-15 07:21] VITALS: BP 132/84
--- NOTE | 2023-04-15 08:16 | NUR ---
CARE OF PT ASSUMED AT 0700. PT AWAKE AND ALERT RESTING IN BED. PT ON AIRVO AT 45L/45%, SATS >90% AT REST AND WITH EXERTION. PT SBA TO COMMODE; YONY ACTIVITY WELL. LUNGS DECREASED T/O W COARSE LUNGS SOUNDS TO UPPER LOBES, ALMOST ABSENT LUNG SOUNDS TO LLL. DR THOMAS IN TO SEE PT THIS AM; FULL UPDATE GIVEN.
--- NOTE | 2023-04-15 09:23 | NUR ---
DR MERIDA AT BEDSIDE. O2 CHANGED FROM AIRVO TO HIGH FLOW AT 15L. SATS >90%.
[2023-04-15 12:55] VITALS: BP 137/84
--- NOTE | 2023-04-15 13:16 | NUR ---
Spiritual care visit conducted. Patient is sitting on a chair and alert. Patient tells me about her spouse that committed suicide many years ago and how that incident frames her intentions in her medical decision making. She tells me that she wants to be an example to her children as one who does not quit on them or on life. She tells me that she wants more intense chemotherapy or whatever it takes to shrink the tumor. We also talk about quality verses quantity and living well and making a difference and having influence as long as she can with what she has. She then talks at length about the family dynamics, and family unit complications. She explains her thoughts about assisting on getting her step father into a dementia care facility, moving her mother into her house and then moving herself down to live with her daughter in [place]. We also explore possible time frames that might hinder the completion of that plan. I reinforce her eleanor, hope and drive to live. I provide therapeutic listening and prayer. Patient responded well and showed signs greater acceptance of her current medical reality and of making intentional plans to move forward. I will continue to remain available to patient and family.
[2023-04-15 16:01] VITALS: BP 119/78
--- NOTE | 2023-04-15 16:53 | NUR ---
PT PLACED ON HIGH FLOW THIS AM AND HAS BEEN TITRATED DOWN T/O SHIFT BY RT. SATS HIGH 90'S ON 5L. PT STARTED C/O SOME DIZZINESS, AND HAS BECOME MILDLY CONFUSED OVER THE PAST COUPLE HOURS. DR MERIDA CALLED AND UPDATED, STAT VBG ORDERED. PT'S DAUGHTER AT BEDSIDE.
[2023-04-15 17:19] LABS: Base Excess Venous 7.8 mmol/L; Bicarbonate Venous 30.3 mmol/L (24.0-30.0); PCO2 Venous 46.3 mmHg (38-42); pH Blood Venous 7.45 (7.34-7.37)
--- NOTE | 2023-04-15 18:39 | NUR ---
VBG SHOWN TO DR MERIDA, NO NEW ORDERS. PT UP IN CHAIR WATCHING TV W/O COMPLAINTS. ABLE TO USE CALL LIGHT APPROPRIATELY.
[2023-04-15 19:27] VITALS: BP 127/88
[2023-04-15 23:57] VITALS: BP 113/70
[2023-04-16 04:30] VITALS: BP 120/87
--- NOTE | 2023-04-16 06:31 | NUR ---
AOX4. SR WITH STABLE BP. WEANED TO BASELINE 3L NC WHEN AWAKE, BIPAP 16/10 40% WHEN SLEEPING. TOLERATING DIET. BSC TO VOID. TKO INFUSING THROUGH PORT.
[2023-04-16 08:18] VITALS: BP 140/78
[2023-04-16 11:23] VITALS: BP 135/92
--- NOTE | 2023-04-16 12:30 | NUR ---
Spiritual care visit conducted. Patient is sitting on a chair and alert. She talks about her desire to discharge today, the family disagreements that ignited last night and her intentions about fighting her cancer with every ounce of her strength. She does admit to wanting to go and live with her dtr in [place] but she has great concerns to leave her ailing mother who lives in [place]. We also talk about her strong Muslim beliefs and how that eleanor has kept her going through the challenging days. I provide therapeutic listening, gentle executive assistant to general counsel and prayer. Patient is moved to tears by the prayer and voices much appreciation.
--- NOTE | 2023-04-16 17:45 | NUR ---
TRANSFER/END OF SHIFT NOTE: PT TRANSFERRED FROM ICU9 TO [facility] AT 1520. THIS RN REMAINED PRIMARY NURSE WITH TRANSFER. NO ACUTE CHANGES THIS SHIFT. PT A&OX4, ABLE TO ANSWER QUESTIONS APPROPRIATELY AND COMMUNICATE NEEDS TO STAFF. HR 80-90'S, NSR. PT DENIES CP/PRESSURE THIS SHIFT. SBP 130-140'S. SPO2 >90% ON 3L O2 VIA NC. PT DENIES FEELING SOB AT REST, DYSPNEA WITH EXERTION. AFEBRILE. MEDIPORT ACCESSED, INFUSING NS TKO AND ZOSYN PER EMAR. SBA TO BATHROOM FOR VOIDS. MULTIPLE LOOSE BM'S THIS SHIFT. CALL LIGHT WITHIN REACH, BED IN LOWEST POSITION. WILL REPORT TO ONCOMING NOC RN.
[2023-04-16 17:50] VITALS: BP 140/90
[2023-04-16 20:07] VITALS: BP 133/80
[2023-04-16 23:44] VITALS: BP 143/84
[2023-04-17 03:36] VITALS: BP 98/63
--- NOTE | 2023-04-17 04:36 | NUR ---
SHIFT SUMMARY PTY IS A&OX4, IND IN THE ROOM, AND CALLS APPROPRIATELY. ON TELE SHE HAS BEEN SR 80'S-90'S, AND SHE DENIES ANGINA OR CHEST PRESSURE. THE PT HAS BEEN BETWEEN 3L NC (WHICH IS HER BASLINE) AND THE BIPAP 16/10 @ 35%. SHE DENIES SOB. SHE HAS HAS NO ACUTE EVENTS OVER NIGHT. HER MEDIPORT IS RUNNING A KVO AT THIS TIME. SEE NOTES FOR ANY UPDATES.
[2023-04-17 05:28] LABS: Hematocrit 28.1 % (33.0-51.0); Hemoglobin 9.4 g/dL (11.5-16.0); Mean Corpuscular HGB 33.1 pg (26.0-34.0); Mean Corpuscular HGB Conc 33.5 g/dL (31.5-36.5); Mean Corpuscular Volume 99 fL (80-100); Mean Platelet Volume 9.2 fL (9.1-12.4); Platelet Count 443 K/mm3 (150-400); RDW Coefficient Variation 15.5 % (11.7-14.2); RDW Standard Deviation 55.5 fL (35.1-46.3); Red Blood Cell Count 2.84 M/mm3 (3.80-5.20); White Blood Cell Count 8.13 K/mm3 (4.00-11.30)
[2023-04-17 05:53] LABS: BAND PERCENT MAN 3 % (0-8); BASOPHILS PERCENT MAN 0 % (0-2); EOSINOPHILS PERCENT MAN 0 % (0-6); LYMPHOCYTES % ATYPICAL MANUAL 1 % (0-0); LYMPHOCYTES ABSOLUTE MAN 1.62 K/mm3 (0.84-5.20); LYMPHOCYTES PERCENT MAN 19 % (21-46); METAMYELOCYTE ABSOLUTE MAN 0.24 K/mm3 (0.00-0.00); METAMYELOCYTE PERCENT MAN 3 % (0-0); MONOCYTES ABSOLUTE MAN 0.16 K/mm3 (0.16-1.47); MONOCYTES PERCENT MAN 2 % (4-13); MYELOCYTE ABSOLUTE MAN 0.32 K/mm3 (0.00-0.00); MYELOCYTE PERCENT MAN 4 % (0-0); NEUTROPHILS ABSOLUTE MAN 5.77 K/mm3 (1.96-9.15); SEG NEUTROPHILS PERCENT MAN 68 % (41-73); TOTAL CELLS COUNTED 100
[2023-04-17 06:02] LABS: Bun/Creatinine Ratio 14.1 (12.0-20.0); Potassium, Blood 3.4 mmol/L (3.5-5.5)
[2023-04-17 07:59] VITALS: BP 143/91
--- NOTE | 2023-04-17 10:52 | NUR ---
Nayana supportive visit this AM. Pt resting in bed and reporting feeling improved. Pt reports being in agreement with D/C plan. She reports her mother is planning on moving in with her for support. Pt reports being uncertaint regarding future options for her cancer treatment but will discuss options with Dr Gerardo on her next visit. Pt reports no new concerns at this time. Palliative Care will remain available
[2023-04-17 11:12] VITALS: BP 130/84
[2023-04-17 15:33] VITALS: BP 132/89
--- NOTE | 2023-04-17 16:58 | NUR ---
END OF SHIFT NOTE: NO ACUTE EVENTS THIS SHIFT. PT REMAINS A&OX4, ABLE TO COMMUNICATE NEEDS WITH STAFF. COOPERATIVE WITH CARE. HR 80-90'S, NSR. SBP 130-140'S, PT DENIES CP/PRESSURE. SPO2 >92% ON 3L O2 VIA NC. PT DENIES SOB, NO OBSERVABLE DYSPNEA OR ACCESSORY MUSCLE USE NOTED. MEDIPORT ACCESSED, INFUSING ZOSYN PER EMAR. PT ABLE TO AMBULATE TO BATHROOM WITH SBA OR INDEPENDENTLY. PT REPOSITIONED SELF FREQUENTLY IN BED T/O SHIFT. CALL LIGHT WITHIN REACH, BED IN LOWEST POSITION. WILL REPORT TO ONCOMING RN.
[2023-04-17 19:30] VITALS: BP 122/77
[2023-04-18 04:40] VITALS: BP 130/97
--- NOTE | 2023-04-18 04:44 | NUR ---
SHIFT SUMMARY PT IS A&OX4, IND IN THE ROOM, CALLS APPROPRAITELY, AND HAS HAD NO ACUTE EVENTS. PT DID HAVE A FLARE UP OF HER CHRONIC BACK PAIN AND WAS MEDICATED ONCE PER EMAR, SHE REFUSED A HEATING PAD. SHE HAS BEEN ON 3L NC OR THE BIPAP 16/10 @ 35% THROUGHT THE NIGHT. SP02 >90%. PT DENIES ANGINA, SOB, N/T. FIRE IGNITION RISK HAS BEEN ASSESSED. NO RISK ASSESSED. PT WILL TRANSFER TO ROOM 335.
[2023-04-18 05:16] LABS: Bun/Creatinine Ratio 13.7 (12.0-20.0); Calcium, Blood 8.6 mg/dL (8.5-10.1); Creatinine, Blood 1.02 mg/dL (0.40-1.00)
[2023-04-18 05:46] VITALS: BP 129/84
[2023-04-18 07:27] VITALS: BP 133/85
[2023-04-18] MEDS ORDERED: ACET325 PO (12:10)
[2023-04-18] MEDS ORDERED: ALBU2.5V5 INH (12:10)
[2023-04-18] MEDS ORDERED: AMOCLA500 PO (12:11)
[2023-04-18] MEDS ORDERED: Flonase 0.05% N16 GM (12:12)
[2023-04-18] MEDS ORDERED: AQUAPHOR ITCH R28 GM TOP (12:12)
[2023-04-18] MEDS ORDERED: Calcium Carbon500 MG PO (12:12)
[2023-04-18] MEDS ORDERED: Prednisone10 MG PO (12:13)
[2023-04-18] MEDS ORDERED: SIME80CH PO (12:13)
[2023-04-18] MEDS ORDERED: GENTEAL TEARS3.5 GM BOTHEYES (12:14)
--- NOTE | 2023-04-18 12:30 | NUR ---
SHIFT SUMMARY AND DISCHARGE PATIENT DISCHARGED HOME. ZEKE CAMERON PER PROTOCOL. DISCHARGE INSTRUCTIONS REVIEWED WITH PATIENT. PATIENT TO HAVE HOME HEALTH TO VISIT. MEDICATIONS REVIEWED. PATIENT DISCHARGED WITH HOME O2. PATIENT ON BASE LINE O2. PATIENT ANXIOUS TO GET HOME. DAUGHTER PRESENT FOR DISCHARGE INSTRUCTIONS. PATIENT INDEPENDENT IN THE ROOM. STATES BREATHING BACK TO HER BASELINE.
== END 2023-04-18 12:30 | disposition home health service (06) | DRG 871 ==
LOC: ER 19:03 → PCU 19:04 → ERHOLD 19:04 → PCU 04-06 05:32 → ICUE 04-06 08:37 → PCU 04-06 08:37 → ICUE 04-10 01:10 → PCU 04-16 15:21 → MEDS 04-18 05:41 → ENPENDDIS 04-18 10:52 → MEDS 04-18 12:30
PROVIDERS: Emergency Medicine; Family Medicine; Family Medicine Adult Medicine; Internal Medicine; Internal Medicine Critical Care Medicine; Student in an Organized Health Care Education/Training Program; ADMIT Internal Medicine
PROC: 5A0935A Assistance with Respiratory Ventilation, Less than 24 Consecutive Hours, High Flow/Velocity Cannula (ICD-10-PCS; principal; 2023-04-10)
PROC: 5A09557 Assistance with Respiratory Ventilation, Greater than 96 Consecutive Hours, Continuous Positive Airway Pressure (ICD-10-PCS; 2023-04-10)
DX: A41.9 Sepsis, unspecified organism (principal); J18.9 Pneumonia, unspecified organism; J96.02 Acute respiratory failure with hypercapnia; J96.21 Acute and chronic respiratory failure with hypoxia; C34.12 Malignant neoplasm of upper lobe, left bronchus or lung; D84.9 Immunodeficiency, unspecified; E87.1 Hypo-osmolality and hyponatremia; J90 Pleural effusion, not elsewhere classified; J98.11 Atelectasis; J98.19 Other pulmonary collapse; J44.0 Chronic obstructive pulmonary disease with (acute) lower respiratory infection; J44.1 Chronic obstructive pulmonary disease with (acute) exacerbation; C77.9 Secondary and unspecified malignant neoplasm of lymph node, unspecified; C78.01 Secondary malignant neoplasm of right lung; G93.1 Anoxic brain damage, not elsewhere classified; R65.20 Severe sepsis without septic shock; Z51.5 Encounter for palliative care; D64.9 Anemia, unspecified; E03.8 Other specified hypothyroidism; E87.6 Hypokalemia; E83.42 Hypomagnesemia; Z20.822 Contact with and (suspected) exposure to COVID-19; I95.9 Hypotension, unspecified; E83.39 Other disorders of phosphorus metabolism; F17.210 Nicotine dependence, cigarettes, uncomplicated; Z88.8 Allergy status to other drugs, medicaments and biological substances; Z91.048 Other nonmedicinal substance allergy status; Z79.890 Hormone replacement therapy; Z79.899 Other long term (current) drug therapy
CPT/HCPCS: 0241U; 36415; 36600; 71045; 71046; 71260; 76604; 80048; 80053; 80069; 81001; 82803; 83605; 83690; 83735; 83880; 84145; 84484; 85025; 85027; 85610; 87040; 93005; 93010; 94640; 94660; 94664; 94667; 94668; 94760; 94761; 94762; 96365; 97110; 97116; 97161; 97165; 97530; 97535; 99285-25; A9270; G0378; J0295; J0456; J0696; J1642; J1650; J1885; J1940; J2405; J2543; J2920; J3475; J7030; J7040; J7050; J7060; J7512; Q5104; Q9967

== ENCOUNTER 2023-08-29 14:11 | Inpatient (IN) | payer OTHER ==
[~2023-08-29] VITALS: Ht 154.9 cm; Wt 69.1 kg
[2023-08-29] VITALS (9 sets, daily range): BP systolic 78–155; BP diastolic 54–138
[~2023-08-29 14:11] MED LIST changes: -DOXY100 PO; -EUTHYROX125 MCG PO; -FAMO20 PO; -IBUP200 PO; -Methocarbamol500 MG PO; -PRED20 PO; -TIOT18 INH
[2023-08-29] MEDS ORDERED: Ipratropium/Albuterol SulF 2.5-0.5MG/3 ML Amp INH ONE (15:15)
[2023-08-29] MEDS ORDERED: NS 1,000 ML IV SCH ×2 (15:15→19:00)
[2023-08-29] MEDS ORDERED: Ketamine HCL 10 MG/ML 5ML SYR IV ONE ×2 (16:15→17:55)
[2023-08-29] MEDS ORDERED: Azithromycin 500 MG in NS 250 ML IV ONE (17:45)
[2023-08-29] MEDS ORDERED: CefTRIAXone Sodium 1,000 MG in NS 50 ML IV ONE (17:45)
[2023-08-29] MEDS ORDERED: TraZODone HCl 50 MG Tab PO PRN (18:30)
[2023-08-29] MEDS ORDERED: Naloxone HCl 0.4MG / ML 1ML Vial IV PRN (18:30)
[2023-08-29] MEDS ORDERED: Metoclopramide HCl 5MG / ML 2ML Vial IV PRN (18:30)
[2023-08-29] MEDS ORDERED: OxyCODONE HCL 5 MG TAB PO PRN (18:30)
[2023-08-29] MEDS ORDERED: Ondansetron 4 MG TAB PO PRN (18:30)
[2023-08-29] MEDS ORDERED: Prochlorperazine 25 MG Supp PR PRN (18:30)
[2023-08-29] MEDS ORDERED: HYDROmorphone HCl/Pf 1MG SYR IV PRN (18:35)
[2023-08-29] MEDS ORDERED: Bisacodyl 10 MG Supp PR PRN (18:35)
[2023-08-29] MEDS ORDERED: FLU VACC QS2023-24(6MOS UP)/PF 60 MCG/0.5 ML SYRINGE IM SCH (18:35)
[2023-08-29] MEDS ORDERED: Magnesium Hydroxide Conc 10 ML UDC PO PRN (18:35)
[2023-08-29] MEDS ORDERED: Albuterol 2.5 MG/3 ML VIAL INH PRN (18:40)
[2023-08-29] MEDS ORDERED: Ipratropium/Albuterol SulF 2.5-0.5MG/3 ML Amp INH SCH (18:40)
[2023-08-29] MEDS ORDERED: Acetaminophen 650 MG Supp PR PRN (18:40)
[2023-08-29] MEDS ORDERED: EUTHYROX125 MCG PO (18:42)
[2023-08-29] MEDS ORDERED: Prednisone10 MG PO (18:43)
[2023-08-29] MEDS ORDERED: IBUP200 PO (18:43)
[2023-08-29] MEDS ORDERED: Methocarbamol500 MG PO (18:43)
[2023-08-29] MEDS ORDERED: Mometasone/Formoterol MDI 200/5 mcg 13 GM INH SCH (19:10)
[2023-08-29] MEDS ORDERED: Docusate Sodium 100 MG Cap PO SCH (21:00)
[2023-08-29] MEDS ORDERED: Famotidine 20 MG Tab PO SCH (21:00)
[2023-08-29] MEDS ORDERED: Doxycycline Hyclate 100 MG TAB PO SCH ×2 (21:00)
[2023-08-29] MEDS ORDERED: Lactobacil 2-S.Thermo-Bifido 1 1 Cap PO SCH (21:00)
[2023-08-29] MEDS ORDERED: TIOT18 INH (21:21)
[2023-08-29] MEDS ORDERED: ALBU2.5V5 INH (21:22)
[2023-08-29] MEDS ORDERED: dilTIAZem HCL 125 MG in Dextrose 5% 100 ML IV SCH (22:00)
[2023-08-29] MEDS ORDERED: Diltiazem HCl 5 MG / ML 5ML Vial IV ONE (22:00)
[2023-08-29] MEDS ORDERED: NS 500 ML IV ONE (22:50)
[2023-08-30] VITALS (48 sets, daily range): BP systolic 70–112; BP diastolic 42–73
[2023-08-30] MEDS ORDERED: MethylPREDNISolone Sod Succ 125 MG Vial IV SCH
[2023-08-30] MEDS ORDERED: Digoxin 0.25 MG/ML 2ML Amp IV ONE (00:05)
[2023-08-30] MEDS ORDERED: NS 500 ML IV ONE ×2 (00:10→05:15)
[2023-08-30] MEDS ORDERED: PHENYLEPHRINE HCL IV SCH (00:50)
[2023-08-30] MEDS ORDERED: NS IV SCH (00:50)
--- NOTE | 2023-08-30 01:10 | NUR ---
TRANSFER NOTE: PT ARRIVED IN PCU HYPOTENSIVE AND IN AFIB WITH RVR. MD WAS NOTIFIED AND PT MEDICATED PER SEP. PT REMAINS HUYPOTENSIVE DESPITE FLUID BOLUSES AND MEDICATIONS. MD NOTIFIED AND ORDERS PLACED TO TRANSFER TO ICU. PT TRANSFERED AT 0100 AND REPORT GIVEN AT BEDSIDE TO STAFFING AND SCHEDULING COORDINATOR. PT DAUGHTER NOTIFIED.
--- NOTE | 2023-08-30 01:25 | NUR ---
PT TRANSFERS FROM PCU 5 TO ROOM ICU UNDER ICU STATUS. PT SLIDE TRANSFERRED TO BED. PT ALERT AND ORIENTED. PLEASANT AND COOPERATIVE WITH CARE. PT IN AFIB WITH RVR. BLOOD PRESSURES WITH MAP > 65 AT THIS TIME. WILL CLOSELY MONITOR. HEART RATE 140'S TO 150'S. HAS RECEIVED DIGOXIN DOSE PER IV PRIOR TO ARRIVING IN UNIT. PT'S TEMP PER RECTAL PROBE 100.3. WILL CONTINUE TO MONITOR. DISCUSSED PLAN OF CARE WITH THIS PT. WILL REVIEW CHART AND ORDERS.
[2023-08-30 02:53] LABS: Bun/Creatinine Ratio 25.6 (12.0-20.0); Calcium, Blood 8.2 mg/dL (8.5-10.1); Creatinine, Blood 0.74 mg/dL (0.40-1.00); Potassium, Blood 3.9 mmol/L (3.5-5.5)
--- NOTE | 2023-08-30 05:12 | NUR ---
CALLS HAVE BEEN MADE TO DR VIEYRA SEVERAL TIMES THIS NIGHT. 150 MG AMIODARONE GIVEN PER IV, AND NEWEST ORDER FOR 500 ML NORMAL SALINE BOLUS. PT HAS CONVERTED TO NORMAL SINUS RHYTHM ALTHOUGH BLOOD PRESSURES HAVE REMAINED 80'S-90'S / 50'S.
[2023-08-30 05:35] LABS: BASOPHILS ABSOLUTE AUTO 0.02 K/mm3 (0.00-0.23); BASOPHILS PERCENT AUTO 0 % (0-2); EOSINOPHILS ABSOLUTE AUTO 0.04 K/mm3 (0.00-0.68); EOSINOPHILS PERCENT AUTO 0 % (0-6); Hematocrit 29.6 % (33.0-51.0); Hemoglobin 9.5 g/dL (11.5-16.0); IMMATURE GRAN ABSOLUTE AUTO 0.02 K/mm3 (0.00-0.10); IMMATURE GRAN PERCENT AUTO 0 % (0-1); LYMPHOCYTES ABSOLUTE AUTO 0.39 K/mm3 (0.84-5.20); LYMPHOCYTES PERCENT AUTO 4 % (21-46); MONOCYTES ABSOLUTE AUTO 0.45 K/mm3 (0.16-1.47); MONOCYTES PERCENT AUTO 5 % (4-13); Mean Corpuscular HGB 29.5 pg (26.0-34.0); Mean Corpuscular HGB Conc 32.1 g/dL (31.5-36.5); Mean Corpuscular Volume 92 fL (80-100); Mean Platelet Volume 9.4 fL (9.1-12.4); NEUTROPHILS ABSOLUTE AUTO 8.57 K/mm3 (1.96-9.15); NEUTROPHILS PERCENT AUTO 90 % (41-73); Platelet Count 297 K/mm3 (150-400); RDW Coefficient Variation 13.9 % (11.7-14.2); RDW Standard Deviation 47.4 fL (35.1-46.3); Red Blood Cell Count 3.22 M/mm3 (3.80-5.20); White Blood Cell Count 9.49 K/mm3 (4.00-11.30)
[2023-08-30] MEDS ORDERED: Levothyroxine Sodium 0.05 MG Tab PO SCH (06:00)
[2023-08-30] MEDS ORDERED: Levothyroxine Sodium 0.125 MG Tab PO SCH (06:00)
[2023-08-30] MEDS ORDERED: Digoxin 0.25 MG/ML 2ML Amp IV SCH (06:00)
[2023-08-30 06:22] LABS: Albumin, Blood 2.4 g/dL (3.4-5.0); Albumin/Globulin Ratio 0.6 (0.8-1.8); Bilirubin, Total 0.3 mg/dL (0.1-1.0); Bun/Creatinine Ratio 23.5 (12.0-20.0); Calcium, Blood 8.1 mg/dL (8.5-10.1); Creatinine, Blood 0.72 mg/dL (0.40-1.00); Globulin, Blood 3.7 g/dL (2.2-4.0); Potassium, Blood 4.3 mmol/L (3.5-5.5); Total Protein, Blood 6.1 g/dL (6.4-8.2)
[2023-08-30] MEDS ORDERED: Acetylcysteine 200 MG/ML 30ml Inhalation INH SCH (08:00)
[2023-08-30] MEDS ORDERED: Folic Acid 1 MG TAB PO SCH (09:00)
[2023-08-30] MEDS ORDERED: Enoxaparin 40 MG/0.4 ML SYR SC SCH (09:00)
[2023-08-30] MEDS ORDERED: Famotidine 20 MG Tab PO SCH (09:00)
[2023-08-30] MEDS ORDERED: Fluticasone 0.05% Nasal Spray SCH (09:00)
[2023-08-30] MEDS ORDERED: Acetylcysteine 200 MG/ML 4ML Vial INH SCH (09:35)
[2023-08-30] MEDS ORDERED: NS 1,000 ML IV ONE (10:40)
--- NOTE | 2023-08-30 10:52 | NUR ---
SHIFT ASSESSMENT ASSUMED CARE OF PT @ 0700, BEDSIDE REPORT RECEIVED FROM LAURI ROMO. PT A&OX4, GATES, FOLLOWING COMMANDS, AMBULATES WITH SBA TO MANAGE LINES AND CORDS. DENIES DIZZINESS WITH AMBULATION. TOLERATING PO INTAKE. BP STABLE. C/O MODERATE TO SEVERE PAIN IN CHEST, DESCRIBING LUNG PAIN WHEN TAKING DEEP BREATHS, MEDICATED WITH PO PAIN MEDICATIONS. ECHO COMPLETE THIS AM. PT NOW PCU STATUS.
[2023-08-30] MEDS ORDERED: Midodrine 2.5 MG Tab PO SCH (15:50)
--- NOTE | 2023-08-30 17:28 | NUR ---
SHIFT SUMMARY: PT TRANSFERRED FROM ICU. ON 4L NC AND NSR IN 80S ON TELE. DR GARCIA CALLED AND GAVE WEIGHT BEARING STATUS FOR WRIST. STATES WRIST BRACE IS OK FOR TONIGHT AND HE WILL COME EXAMINE FURTHER TOMORROW. PT'S DAUGHTER HAS BEEN AT BEDSIDE AND LEFT FOR THE EVENING. IVF RUNNING AT 100/HR. CALL LIGHT IN REACH. DENIES NEEDS OR CONCERNS.
[2023-08-30] MEDS ORDERED: Enoxaparin 80 MG/0.8 ML SYR SC SCH (21:00)
--- NOTE | 2023-08-31 04:06 | NUR ---
END OF SHIFT NOTE: PT A/OX4 AND ABLE TO MAKE NEEDS KNOWN USING THE CALL LIGHT. PT USES BSC INDEPENDENTLY. RESPIRATORY CARE SET UP PT'S HOME CPAP, PT HAS WORN IN T/O MY SHIFT. PT EDUCATED ON USE OF IS TO INCREASE LUNG COMPLIANCE. VSS, MAP >65 T/O SHIFT. PT DENIES PAIN OR NEEDS AT THIS TIME. CALL LIGHT IN REACH AND BED IN LOWEST POSIITON. WILL REPORT TO ONCOMING RN.
[2023-08-31 04:42] LABS: BASOPHILS PERCENT AUTO 0 % (0-2); EOSINOPHILS PERCENT AUTO 0 % (0-6); Hematocrit 29.7 % (33.0-51.0); Hemoglobin 9.5 g/dL (11.5-16.0); IMMATURE GRAN ABSOLUTE AUTO 0.06 K/mm3 (0.00-0.10); IMMATURE GRAN PERCENT AUTO 1 % (0-1); LYMPHOCYTES ABSOLUTE AUTO 0.43 K/mm3 (0.84-5.20); LYMPHOCYTES PERCENT AUTO 4 % (21-46); MONOCYTES ABSOLUTE AUTO 0.28 K/mm3 (0.16-1.47); MONOCYTES PERCENT AUTO 3 % (4-13); Mean Corpuscular HGB 28.9 pg (26.0-34.0); Mean Corpuscular Volume 90 fL (80-100); Mean Platelet Volume 9.8 fL (9.1-12.4); NEUTROPHILS ABSOLUTE AUTO 10.16 K/mm3 (1.96-9.15); NEUTROPHILS PERCENT AUTO 93 % (41-73); Platelet Count 299 K/mm3 (150-400); RDW Coefficient Variation 13.4 % (11.7-14.2); RDW Standard Deviation 44.3 fL (35.1-46.3); Red Blood Cell Count 3.29 M/mm3 (3.80-5.20); White Blood Cell Count 10.93 K/mm3 (4.00-11.30)
[2023-08-31 05:03] LABS: Albumin, Blood 2.4 g/dL (3.4-5.0); Albumin/Globulin Ratio 0.6 (0.8-1.8); Bilirubin, Total 0.2 mg/dL (0.1-1.0); Bun/Creatinine Ratio 20.8 (12.0-20.0); Calcium, Blood 8.9 mg/dL (8.5-10.1); Creatinine, Blood 0.67 mg/dL (0.40-1.00); Potassium, Blood 4.8 mmol/L (3.5-5.5); Total Protein, Blood 6.4 g/dL (6.4-8.2)
[2023-08-31 07:14] VITALS: BP 113/73
[2023-08-31 11:51] VITALS: BP 114/66
[2023-08-31] MEDS ORDERED: Simethicone 80 MG Chew PO PRN (15:10)
[2023-08-31 15:47] VITALS: BP 114/79
--- NOTE | 2023-08-31 17:51 | NUR ---
SHIFT SUMMARY PT AOX4. PT CALLS APPROPRIATELTY AND OBEYS COMMANDS. PT DENIES CHEST PAIN/PRESSURE VSS. SPO2>90 ON 2L O2 VIA NC. BREATHING EVEN AND UNLABORED. PT REPORTED FEELING BLOATED REQUESTING MEDICATION TO HELP WITH BLOAT, ORDERS GIVEN PT MEDICATED PER EMAR. TO BEDSIDE TO EVALUATE PT WRIST INJURY, PLACED ORTHOGLASS SPLINT ON PT. PT TO FOLLOW UP WITH ORTHO AFTER DISCHARGE. PT USED FLUTTER VAVLE T/O SHIFT. PT COOPERATIVE WITH CARE. NO ACUTE CHANGES.
[2023-08-31 20:30] VITALS: BP 101/55
[2023-09-01 00:07] VITALS: BP 106/65
[2023-09-01 03:14] VITALS: BP 113/68
--- NOTE | 2023-09-01 03:44 | NUR ---
END OF SHIFT NOTE: PT A/OX4 ABLE TO MAKE NEEDS KNOWN. SHE IS CONTINENT AND USES THE BSC IND. SHE WEARS HER HOME TRILIGY AT NIGHT AND HAS MAINTAINED SPO2>92%. SHE IS ON TELE IN NSR WITH SOFT BPS. MAP HAS >65. SHE DENIES PAIN. PT RESTING COMFORTABLY WITH EVEN UNLABORED RESPIRATIONS, CALL LIGHT IN REACH. PT DENIES NEEDS AT THIS TIME
[2023-09-01 04:07] LABS: BASOPHILS ABSOLUTE AUTO 0.01 K/mm3 (0.00-0.23); BASOPHILS PERCENT AUTO 0 % (0-2); EOSINOPHILS PERCENT AUTO 0 % (0-6); Hematocrit 27.6 % (33.0-51.0); IMMATURE GRAN ABSOLUTE AUTO 0.07 K/mm3 (0.00-0.10); IMMATURE GRAN PERCENT AUTO 1 % (0-1); LYMPHOCYTES ABSOLUTE AUTO 0.41 K/mm3 (0.84-5.20); LYMPHOCYTES PERCENT AUTO 4 % (21-46); MONOCYTES ABSOLUTE AUTO 0.37 K/mm3 (0.16-1.47); MONOCYTES PERCENT AUTO 3 % (4-13); Mean Corpuscular HGB 29.3 pg (26.0-34.0); Mean Corpuscular HGB Conc 32.6 g/dL (31.5-36.5); Mean Corpuscular Volume 90 fL (80-100); Mean Platelet Volume 9.6 fL (9.1-12.4); NEUTROPHILS ABSOLUTE AUTO 10.77 K/mm3 (1.96-9.15); NEUTROPHILS PERCENT AUTO 93 % (41-73); Platelet Count 318 K/mm3 (150-400); RDW Coefficient Variation 13.5 % (11.7-14.2); RDW Standard Deviation 44.5 fL (35.1-46.3); Red Blood Cell Count 3.07 M/mm3 (3.80-5.20); White Blood Cell Count 11.63 K/mm3 (4.00-11.30)
[2023-09-01 04:24] LABS: Bun/Creatinine Ratio 27.6 (12.0-20.0); Calcium, Blood 9.2 mg/dL (8.5-10.1); Creatinine, Blood 0.62 mg/dL (0.40-1.00); Potassium, Blood 4.3 mmol/L (3.5-5.5)
[2023-09-01 07:56] VITALS: BP 127/79
[2023-09-01] MEDS ORDERED: PredniSONE 20 MG Tab PO SCH (11:00)
[2023-09-01 11:24] VITALS: BP 123/74
[2023-09-01] MEDS ORDERED: PRED20 PO (13:17)
[2023-09-01] MEDS ORDERED: FAMO20 PO (13:18)
[2023-09-01] MEDS ORDERED: DOXY100 PO (13:18)
[2023-09-01] MEDS ORDERED: Flonase 0.05% N16 GM (13:18)
[2023-09-01 14:44] VITALS: BP 113/73
--- NOTE | 2023-09-01 15:08 | NUR ---
PT DISCHARGED AT 1508 I WENT OVER DISCHARGE PAPERWORK WITH THE PT AND ANSWERED ALL QUESTIONS WITH HER. ALL BELONGINGS WERE SENT WITH HER. IV WAS DISCHARGED BY DIEGO Li CNA. VS. STABLE. THE PT'S DAUGHTER BROUGHT IN A HOME OXYGEN TANKFOR DISCHARGE. NO FURTHER UPDATES.
[2023-09-02 23:29] LABS: ADRENOCORTICOTROPIC HORMONE <1.5 pg/mL (7.2-63.3)
== END 2023-09-01 15:08 | disposition home or self-care (01) | DRG 871 ==
LOC: ER 14:11 → ICUE 18:26 → PCU 18:26 → ICUE 08-30 00:55 → PCU 08-30 16:49
PROVIDERS: Family Medicine; Internal Medicine; ADMIT Hospitalist
DX: A41.9 Sepsis, unspecified organism (principal); J96.21 Acute and chronic respiratory failure with hypoxia; S52.552A Other extraarticular fracture of lower end of left radius, initial encounter for closed fracture; C34.90 Malignant neoplasm of unspecified part of unspecified bronchus or lung; J90 Pleural effusion, not elsewhere classified; I48.92 Unspecified atrial flutter; I95.9 Hypotension, unspecified; J40 Bronchitis, not specified as acute or chronic; E03.9 Hypothyroidism, unspecified; R05.9 Cough, unspecified; R91.8 Other nonspecific abnormal finding of lung field; W18.30XA Fall on same level, unspecified, initial encounter; Z79.51 Long term (current) use of inhaled steroids; Z79.52 Long term (current) use of systemic steroids; Z79.890 Hormone replacement therapy; Z87.891 Personal history of nicotine dependence
CPT/HCPCS: 36415; 71046; 71260; 73110; 80048; 80053; 82024; 82533; 83605; 83735; 83880; 84145; 84443; 84484; 85025; 85379; 87040; 93005; 93010; 93306; 94640; 94660; 94664; 94668; 94761; 94762; 96361; 96365-59; 96367-59; 99285-25; A9270; J0282; J0456; J0696; J1160; J1170; J1650; J2930; J7030; J7050; J7512; Q9967

== ENCOUNTER → 2023-08-29 | Outpatient (CLI) | payer OTHER ==
[~2023-08-29] MED LIST changes: +ACET325 PO; +ALBU2.5V5 INH; +AMOCLA500 PO; +AQUAPHOR ITCH R28 GM TOP; +Calcium Carbon500 MG PO; +DOXY100 PO; +EUTHYROX125 MCG PO; +EUTHYROX50 MCG PO; +FAMO20 PO; +GENTEAL TEARS3.5 GM BOTHEYES; +IBUP200 PO; +Methocarbamol500 MG PO; +PRED20 PO; +Prednisone10 MG PO; +SIME80CH PO; +TIOT18 INH
[2023-08-29 12:18] LABS: BASOPHILS ABSOLUTE AUTO 0.02 K/mm3 (0.00-0.23); BASOPHILS PERCENT AUTO 0 % (0-2); EOSINOPHILS ABSOLUTE AUTO 0.35 K/mm3 (0.00-0.68); EOSINOPHILS PERCENT AUTO 4 % (0-6); Hematocrit 35.4 % (33.0-51.0); Hemoglobin 11.5 g/dL (11.5-16.0); IMMATURE GRAN ABSOLUTE AUTO 0.02 K/mm3 (0.00-0.10); IMMATURE GRAN PERCENT AUTO 0 % (0-1); LYMPHOCYTES ABSOLUTE AUTO 0.99 K/mm3 (0.84-5.20); LYMPHOCYTES PERCENT AUTO 12 % (21-46); MONOCYTES ABSOLUTE AUTO 0.61 K/mm3 (0.16-1.47); MONOCYTES PERCENT AUTO 7 % (4-13); Mean Corpuscular HGB 28.9 pg (26.0-34.0); Mean Corpuscular HGB Conc 32.5 g/dL (31.5-36.5); Mean Corpuscular Volume 89 fL (80-100); Mean Platelet Volume 9.5 fL (9.1-12.4); NEUTROPHILS ABSOLUTE AUTO 6.26 K/mm3 (1.96-9.15); NEUTROPHILS PERCENT AUTO 76 % (41-73); Platelet Count 390 K/mm3 (150-400); RDW Standard Deviation 45.3 fL (35.1-46.3); Red Blood Cell Count 3.98 M/mm3 (3.80-5.20); White Blood Cell Count 8.25 K/mm3 (4.00-11.30)
[2023-08-29 12:29] LABS: Albumin, Blood 2.8 g/dL (3.4-5.0); Albumin/Globulin Ratio 0.6 (0.8-1.8); Bilirubin, Total 0.4 mg/dL (0.1-1.0); Bun/Creatinine Ratio 21.1 (12.0-20.0); Calcium, Blood 8.9 mg/dL (8.5-10.1); Creatinine, Blood 1.23 mg/dL (0.40-1.00); Globulin, Blood 4.4 g/dL (2.2-4.0); Total Protein, Blood 7.2 g/dL (6.4-8.2)
== END | disposition home or self-care (01) ==
LOC: LAB SHORT 12:13
PROVIDERS: Physician Assistant
DX: R06.00 Dyspnea, unspecified (principal)
CPT/HCPCS: 80053; 83880; 84484; 85025

== ENCOUNTER → 2023-10-31 | Outpatient (CLI) | payer OTHER ==
[~2023-10-31] MED LIST changes: +DOXY100 PO; +EUTHYROX125 MCG PO; +FAMO20 PO; +IBUP200 PO; +Methocarbamol500 MG PO; +PRED20 PO; +TIOT18 INH
[2023-11-06 11:14] LABS: HPV HIGH RISK BY TMA Not Detected; HPV SOURCE Cervical
== END | disposition home or self-care (01) ==
LOC: LAB 15:50 → LAB SHORT 15:50
PROVIDERS: Family Medicine
DX: Z01.419 Encounter for gynecological examination (general) (routine) without abnormal findings (principal)
CPT/HCPCS: 87624; G0123

== ENCOUNTER 2025-02-27 01:01 | Inpatient (IN) | payer OTHER ==
[2025-02-27] VITALS (67 sets, daily range): BP systolic 69–139; BP diastolic 34–103
[~2025-02-27] VITALS: Ht 154.9 cm; Wt 72.1 kg
[2025-02-27] MEDS ORDERED: Ondansetron HCl 2 MG / ML 2ML Vial IV ONE (01:20)
[2025-02-27] MEDS ORDERED: NS 500 ML IV SCH (01:20)
[2025-02-27] MEDS ORDERED: Albuterol 2.5 MG/3 ML VIAL INH SCH (01:20)
[2025-02-27] MEDS ORDERED: Ipratropium/Albuterol SulF 2.5-0.5MG/3 ML Amp INH ONE (01:20)
[2025-02-27 01:25] LABS: pH Blood Venous 7.35 (7.34-7.37)
[2025-02-27 01:26] LABS: BASOPHILS ABSOLUTE AUTO 0.03 K/mm3 (0.00-0.23); BASOPHILS PERCENT AUTO 0 % (0-2); EOSINOPHILS ABSOLUTE AUTO 0.34 K/mm3 (0.00-0.68); EOSINOPHILS PERCENT AUTO 2 % (0-6); Hematocrit 37.4 % (33.0-51.0); Hemoglobin 12.4 g/dL (11.5-16.0); IMMATURE GRAN ABSOLUTE AUTO 0.07 K/mm3 (0.00-0.10); IMMATURE GRAN PERCENT AUTO 1 % (0-1); LYMPHOCYTES ABSOLUTE AUTO 0.34 K/mm3 (0.84-5.20); LYMPHOCYTES PERCENT AUTO 2 % (21-46); MONOCYTES ABSOLUTE AUTO 0.34 K/mm3 (0.16-1.47); MONOCYTES PERCENT AUTO 2 % (4-13); Mean Corpuscular HGB Conc 33.2 g/dL (31.5-36.5); Mean Corpuscular Volume 93 fL (80-100); NEUTROPHILS ABSOLUTE AUTO 13.90 K/mm3 (1.96-9.15); NEUTROPHILS PERCENT AUTO 92 % (41-73); NRBC ABSOLUTE 0.00 K/mm3 (0.00-0.02); NRBC Auto 0.0 /100 WBC (0.0-0.2); Platelet Count 243 K/mm3 (150-400); RDW Coefficient Variation 13.9 % (11.7-14.2); RDW Standard Deviation 47.2 fL (35.1-46.3)
[2025-02-27 01:45] LABS: Alanine Aminotransfer (ALT/SGP 23.0 U/L (12-78); Albumin, Blood 3.3 g/dL (3.4-5.0); Albumin/Globulin Ratio 1.2 (0.8-1.8); Anion Gap 7.0 mmol/L (3-11); Aspartate Aminotrans (AST/SGOT 15.0 U/L (12-37); Bilirubin, Total 0.3 mg/dL (0.1-1.0); Blood Urea Nitrogen 24.0 mg/dL (8-24); CO2, Blood 26.0 mmol/L (21-32); Calcium, Blood 8.7 mg/dL (8.5-10.1); Chloride, Blood 106.0 mmol/L (98-108); Creatinine, Blood 1.05 mg/dL (0.40-1.00); Globulin, Blood 2.7 g/dL (2.2-4.0); Glucose, Blood 97.0 mg/dL (70-99); Magnesium, Blood 1.8 mg/dL (1.6-2.4); Potassium, Blood 3.8 mmol/L (3.5-5.5); Sodium, Blood 135.0 mmol/L (136-145); Total Protein, Blood 6.0 g/dL (6.4-8.2)
[2025-02-27] MEDS ORDERED: NS 1,000 ML IV SCH (02:40)
[2025-02-27] MEDS ORDERED: CefTRIAXone Sodium 1,000 MG in NS 50 ML IV ONE (02:40)
[2025-02-27] MEDS ORDERED: Ketorolac Tromethamine 15mg Vial IV ONE (03:21)
[2025-02-27] MEDS ORDERED: Ipratropium/Albuterol SulF 2.5-0.5MG/3 ML Amp INH PRN (04:15)
[2025-02-27] MEDS ORDERED: Albuterol 2.5 MG/3 ML VIAL INH PRN (04:15)
--- NOTE | 2025-02-27 07:45 | NUR ---
ASSUMED CARE OF PT, ADMITTED TO ICU 15. NEURO: A/O X4. MAEW CARDIAC: SBP 80-90S ON 7MCG/MIN LEVOPHED VIA PERIPHREAL 20G LAC. GOOD BLOOD RETURN NOTED. PULM: COARSE RML/RLL, OTHERWISE DIM THROUGHOUT. GI: NORMOACITVE BOWEL TONES : CONTINENT OF URINE SKIN: INTACT. DAUGHTER AT BEDSIDE. EDUCATATION PROVIDED ON DX SEPSIS, PNA AND MEDICATION:LEVOPHED.
[2025-02-27] MEDS ORDERED: Enoxaparin 40 MG/0.4 ML SYR SC SCH (09:00)
[2025-02-27] MEDS ORDERED: Lactobacil 2-S.Thermo-Bifido 1 1 Cap PO SCH (09:00)
[2025-02-27] MEDS ORDERED: NS 250 ML IV PRN (11:45)
[2025-02-27] MEDS ORDERED: Tiotropium Bromide 2.5 MCG/ACT MIST INHAL (10 ACT/4 GM) INH SCH (15:45)
--- NOTE | 2025-02-27 17:43 | NUR ---
SHIFT SUMMARY NEURO: PT ALERT AND ORIENTED X4. CALLS APPOPRIATELY AND ABLE TO MAKE HER NEEDS KNOWN. AFEBRILE. CARDIAC: SBP: 80-110S. LEVO TITRATED TO MAINTAIN MAP >65. CURRENTLY ON 2MCG/MIN. PORT TO R CHEST ACCESSED AT 1410 AND LEVO GTT TRANSFERRED TO THIS ACCESS. PULM: COARSE BILATERAL BASES. DIM IN RLL. ON 5 LPM VIA NC, HUMIDIFIED. O2 SATS REMAIN >95%. + COUGH, HARSH. NOTIFIED DR HAQUE NEW ORDERS RECIEVED. GI: ABDOMEN IS SOFT/NON TENDER, NORMOACTIVE BOWEL TONES. REPORTED SOME ACID REFLUX DR HAQUE NOTIFIED AND NEW ORDERS RECIEVED : CONTIENT OF URINE, PULL UP BRIEF. DARK YELLOW URINE BUT CLEAR. SKIN: INTACT.
[2025-02-27] MEDS ORDERED: Eucalypt/Men/Camp/Turp/Pet,WH 50 gm TOP PRN (20:25)
[2025-02-27] MEDS ORDERED: Ipratropium/Albuterol SulF 2.5-0.5MG/3 ML Amp INH SCH (20:40)
[2025-02-28] VITALS (53 sets, daily range): BP systolic 82–124; BP diastolic 50–79
[2025-02-28] MEDS ORDERED: Ipratropium/Albuterol SulF 2.5-0.5MG/3 ML Amp INH SCH (04:15)
[2025-02-28 05:07] LABS: BASOPHILS ABSOLUTE AUTO 0.02 K/mm3 (0.00-0.23); BASOPHILS PERCENT AUTO 0 % (0-2); EOSINOPHILS ABSOLUTE AUTO 0.35 K/mm3 (0.00-0.68); EOSINOPHILS PERCENT AUTO 2 % (0-6); Hematocrit 32.6 % (33.0-51.0); Hemoglobin 10.5 g/dL (11.5-16.0); IMMATURE GRAN ABSOLUTE AUTO 0.09 K/mm3 (0.00-0.10); IMMATURE GRAN PERCENT AUTO 1 % (0-1); LYMPHOCYTES ABSOLUTE AUTO 0.78 K/mm3 (0.84-5.20); LYMPHOCYTES PERCENT AUTO 4 % (21-46); MONOCYTES ABSOLUTE AUTO 0.71 K/mm3 (0.16-1.47); MONOCYTES PERCENT AUTO 4 % (4-13); Mean Corpuscular HGB Conc 32.2 g/dL (31.5-36.5); Mean Corpuscular Volume 94 fL (80-100); NEUTROPHILS ABSOLUTE AUTO 15.65 K/mm3 (1.96-9.15); NEUTROPHILS PERCENT AUTO 89 % (41-73); NRBC ABSOLUTE 0.00 K/mm3 (0.00-0.02); NRBC Auto 0.0 /100 WBC (0.0-0.2); Platelet Count 246 K/mm3 (150-400); RDW Coefficient Variation 14.3 % (11.7-14.2); RDW Standard Deviation 49.1 fL (35.1-46.3)
[2025-02-28 05:35] LABS: Alanine Aminotransfer (ALT/SGP 22.0 U/L (12-78); Albumin, Blood 2.8 g/dL (3.4-5.0); Albumin/Globulin Ratio 0.9 (0.8-1.8); Anion Gap 7.0 mmol/L (3-11); Aspartate Aminotrans (AST/SGOT 14.0 U/L (12-37); Bilirubin, Total 0.2 mg/dL (0.1-1.0); Blood Urea Nitrogen 17.0 mg/dL (8-24); CO2, Blood 26.0 mmol/L (21-32); Calcium, Blood 8.2 mg/dL (8.5-10.1); Chloride, Blood 109.0 mmol/L (98-108); Creatinine, Blood 0.73 mg/dL (0.40-1.00); Globulin, Blood 3.1 g/dL (2.2-4.0); Glucose, Blood 106.0 mg/dL (70-99); Potassium, Blood 4.4 mmol/L (3.5-5.5); Sodium, Blood 138.0 mmol/L (136-145); Total Protein, Blood 5.9 g/dL (6.4-8.2)
--- NOTE | 2025-02-28 07:30 | NUR ---
SHIFT SUMMARY: NO ACUTE CHANGES T/O SHIFT. PT REMAINS A&O X4, ABLE TO COMMUNICATE NEEDS AND AMBULATES INDEPENDENTLY W/ MIN CORD ASSIST. PT SBP STABLE, LEVOPHED TITRATED TO MAINTAIN MAP>65. SEE TITRATION FLOWSHEET. PORT TO R CHEST ACCESSED PRIOR TO THIS RN, LEVO GTT TITRATING THROUGH PORT. HR 80S-LOW 100S, SINUS. LUNGS COARSE/DIM. PT ON 5L O2 VIA NC, HUMIDIFIED. SATS >93%. PT WEARS 2L VIA NC AT BASELINE. ENDORSES SOB W/ ACTIVITY. PT HAS HACKING COUGH, W/ MINIMAL SECRETIONS. ABD SOFT, BT ACTIVE T/O. PT ENDORSES ACID REFLUX, MEDICATED PER EMAR. PT USING BEDSIDE COMMODE TO VOID. CONTINENT. SKIN INTACT. PIV TO BILAT ACS, SALINE LOCKED AT THIS TIME. REPORT GIVENT TO DAY RN.
[2025-02-28] MEDS ORDERED: Acetylcysteine 200 MG/ML 30ml Inhalation INH PRN (07:40)
[2025-02-28] MEDS ORDERED: CefTRIAXone Sodium 1,000 MG in NS 100 ML IV SCH (09:00)
[2025-02-28] MEDS ORDERED: Folic Acid 1 MG TAB PO SCH (09:00)
[2025-02-28] MEDS ORDERED: Fluticasone 0.05% Nasal Spray SCH (09:00)
[2025-02-28] MEDS ORDERED: NS 500 ML IV ONE (09:40)
--- NOTE | 2025-02-28 12:42 | NUR ---
AM NOTE PT ALERT IN BED AT TIME OF BEDSIE REPORT. PT A/OX4 AND ABLE TO FOLLOW COMMANDS/CALL APPROPRIATELY. PT DENIES ANY PAIN/NUMBESS/TINGLING AT THIS TIME. NSR ON MONITOR, CAP REFILL<3 SEC, AND NO NOTED EDEMA. BREATH SOUNDS DIM W/ FAINT EXPIRATORY WHEEZES, PT ON 4LPM OXYGEN VIA NC, PT BASAELINE 2 LPM NC BOWEL TONES ACTIVE AND ABD SOFT/NONTENDER. WNL. SKIN WNL. ACCESS: R CHEST MEDIPORT, BILATERAL PIV TO AC'S GTTS: LEVO 1MCG/MIN
--- NOTE | 2025-02-28 18:34 | NUR ---
TRANSFER OF CARE REPORT GIVEN TO ADMINISTRATOR OF HOME HEALTHDEMETRIUS Colvin AT 1700. ASSESSMENT REMAINS UNCHANGED FROM AM NOTE.
--- NOTE | 2025-02-28 18:35 | NUR ---
RECEIVED REPORT FROM DEMETRIUS GARZON @ APPROXIMATELY 1700. AGREE WITH PRIOR AUTOMOTIVE COLLISION ESTIMATOR, NO ACUTE CHANGES. ON 4-5L VIA HUMIDIFIED NC. ATE DINNER AND TOLERATED WELL. PCU STATUS. LUNGS COARSE/EXPIRATORY WHEEZES. UP TO BATHROOM X1.
[2025-03-01] VITALS: BP 113/69
[2025-03-01 04:00] VITALS: BP 99/62
[2025-03-01 05:31] LABS: BASOPHILS ABSOLUTE AUTO 0.01 K/mm3 (0.00-0.23); BASOPHILS PERCENT AUTO 0 % (0-2); EOSINOPHILS ABSOLUTE AUTO 1.13 K/mm3 (0.00-0.68); EOSINOPHILS PERCENT AUTO 11 % (0-6); Hematocrit 31.3 % (33.0-51.0); Hemoglobin 10.3 g/dL (11.5-16.0); IMMATURE GRAN ABSOLUTE AUTO 0.06 K/mm3 (0.00-0.10); IMMATURE GRAN PERCENT AUTO 1 % (0-1); LYMPHOCYTES ABSOLUTE AUTO 1.10 K/mm3 (0.84-5.20); LYMPHOCYTES PERCENT AUTO 11 % (21-46); MONOCYTES ABSOLUTE AUTO 0.68 K/mm3 (0.16-1.47); MONOCYTES PERCENT AUTO 7 % (4-13); Mean Corpuscular HGB Conc 32.9 g/dL (31.5-36.5); Mean Corpuscular Volume 94 fL (80-100); NEUTROPHILS ABSOLUTE AUTO 7.47 K/mm3 (1.96-9.15); NEUTROPHILS PERCENT AUTO 72 % (41-73); NRBC ABSOLUTE 0.00 K/mm3 (0.00-0.02); NRBC Auto 0.0 /100 WBC (0.0-0.2); Platelet Count 258 K/mm3 (150-400); RDW Coefficient Variation 14.6 % (11.7-14.2); RDW Standard Deviation 49.8 fL (35.1-46.3)
[2025-03-01 05:56] LABS: Anion Gap 6.0 mmol/L (3-11); Blood Urea Nitrogen 15.0 mg/dL (8-24); CO2, Blood 30.0 mmol/L (21-32); Calcium, Blood 9.2 mg/dL (8.5-10.1); Chloride, Blood 106.0 mmol/L (98-108); Creatinine, Blood 0.78 mg/dL (0.40-1.00); Glucose, Blood 90.0 mg/dL (70-99); Potassium, Blood 3.9 mmol/L (3.5-5.5); Sodium, Blood 138.0 mmol/L (136-145)
--- NOTE | 2025-03-01 06:48 | NUR ---
NO ACUTE EVENTS OVERNIGHT. VSS. PT AMBULATED TO TOILET INDEPENDENTLY. PT SPO2 MAINTAINED >92% ON 4L VIA NASAL CANNULA. BED LOCKED AND IN LOWEST POSITION. CALL LIGHT WITHIN REACH.
[2025-03-01 08:27] VITALS: BP 105/70
[2025-03-01] MEDS ORDERED: AMOCLA875 PO (12:36)
[2025-03-01] MEDS ORDERED: GUAI600T33 PO (12:37)
[2025-03-01] MEDS ORDERED: [UNRECOGNIZED DRUG - OTHER] PO (12:39)
[2025-03-01] MEDS ORDERED: MIDODRINE HCL10 M1 PO (12:40)
[2025-03-01 12:41] VITALS: BP 109/72
[2025-03-01] MEDS ORDERED: DELTASONE20 MG PO (12:42)
--- NOTE | 2025-03-01 13:49 | NUR ---
D/C SUMMARY THE PT IS A&OX4, CALLS APPROPRAITELY, MAKES HER NEEDS KNOWN, IND IN THE ROOM. ON TELE SHE HAS BEEN SR, BP SOFT BUT STABLE. MIDODRINE PER EMAR. SHE HAS BEEN ON HER BASELINE OXYGEN OF 2L NC T/O THE DAY AND SHE DENIES ANY SOB. SHE IS DISCHARGING [facility]. AWAITING FOR HER DAUGHTER TO INVENTORY CONTROL ASSOCIATE HER HOME OXYGEN AND SHOW UP TO GIVE THE PT A RIDE. THE PT HAS BEEN W/O ANY ACUTE EVENTS. MEDIPORT DEACCESSED AND IS HEPARIN LOCKED. IV'S D/C'D. SEE NOTES FOR ANY UPDATES.
== END 2025-03-01 14:52 | disposition home or self-care (01) | DRG 871 ==
LOC: ER 01:01 → ERHOLD 01:02 → ICUE 01:02
PROVIDERS: Family Medicine; Internal Medicine; Student in an Organized Health Care Education/Training Program; ADMIT Student in an Organized Health Care Education/Training Program
PROC: 3E033XZ Introduction of Vasopressor into Peripheral Vein, Percutaneous Approach (ICD-10-PCS; principal; 2025-02-27)
PROC: 3E03329 Introduction of Other Anti-infective into Peripheral Vein, Percutaneous Approach (ICD-10-PCS; 2025-02-27)
DX: A41.9 Sepsis, unspecified organism (principal); J18.9 Pneumonia, unspecified organism; R65.21 Severe sepsis with septic shock; J96.21 Acute and chronic respiratory failure with hypoxia; I48.92 Unspecified atrial flutter; J44.1 Chronic obstructive pulmonary disease with (acute) exacerbation; J44.0 Chronic obstructive pulmonary disease with (acute) lower respiratory infection; C34.12 Malignant neoplasm of upper lobe, left bronchus or lung; E03.9 Hypothyroidism, unspecified; D64.9 Anemia, unspecified; I48.0 Paroxysmal atrial fibrillation; R39.9 Unspecified symptoms and signs involving the genitourinary system; Z79.899 Other long term (current) drug therapy
CPT/HCPCS: 36415; 71045; 80048; 80053; 82803; 83605; 83735; 83880; 84443; 85025; 87086; 93005; 93010; 94640; 94664; 94762; 96365; 96366; 96367; 96375; 99291-25; A9270; G0378; J0456; J0696; J1642; J1650; J1885; J2405; J2919; J7030; J7040; J7050; J7512

== ENCOUNTER → 2025-06-24 | Outpatient (CLI) | payer MEDICARE, OTHER ==
[~2025-06-24] MED LIST changes: +AMOCLA875 PO; +DELTASONE20 MG PO; +GUAI600T33 PO; +MIDODRINE HCL10 M1 PO; +[UNRECOGNIZED DRUG - OTHER] PO
== END ==
LOC: LAB 11:05 → LAB SHORT 11:05
DX: K21.9 Gastro-esophageal reflux disease without esophagitis (principal)
CPT/HCPCS: 87338